=== PATIENT | male | born 1970 | race Caucasian/White ===

== ENCOUNTER 2019-04-08 15:49 | Inpatient (IN) | payer OTHER ==
[~2019-04-08] VITALS: Ht 182.9 cm; Wt 173.2 kg
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
--- OUTSIDE RECORDS SUMMARY | ~2019-04-08 | XMS | Clinical Summary ---
Demographics + + + | Address | [address] | | | [place] [address] | + + + | Home Phone | | + + + | Preferred Language | Unknown | + + + | Marital Status | Single | + + + | Worship Affiliation | Unknown | + + + | Race | Unknown | + + + | Ethnic Group | Unknown | + + + Author + + + | Author | [facility] | | | and [place] | + + + | Organization | [facility] | | | and [...] Team Providers + +------+ + | Care Site Supervisor Name | Role | Phone | + +------+ + | No, Physician | PCP | Unavailable | + +------+ + Allergies No Known Allergies Medications + + + +---------+------+------+-------+ | Medication | Sig | Dispensed | Refills | Star | End | Statu | | | | | | t | Date | s | | | | | | Date | | | + + + +---------+------+------+-------+ | albuterol 90 | inhale 1 to 2 puffs | | 0 | 09/2 | | Activ | | mcg/puff inhaler | by mouth and INTO | | | 1/20 | | e | | | THE LUNGS every 4 to | | | 19 | | | | | 6 hours if needed | | | | | | + + + +---------+------+------+-------+ | amLODIPine | | | 0 | 03/0 | | Activ | | (NORVASC) 5 mg | | | | 2/20 | | e | | tablet | | | | 19 | | | + + + +---------+------+------+-------+ | carvedilol (COREG | | | 0 | 04/2 | | Activ | | CR) 40 mg 24 hr | | | | 7/20 | | e | | capsule | | | | 19 | | | + + + +---------+------+------+-------+ | furosemide (LASIX) | | | 0 | 04/2 | | Activ | | 40 mg tablet | | | | 7/20 | | e | | | | | | 19 | | | + + + +---------+------+------+-------+ | meloxicam (MOBIC) | take 1 tablet by | | 0 | 07/2 | | Activ | | 15 mg tablet | mouth once daily | | | 6/20 | | e | | | | | | 19 | | | + + + +---------+------+------+-------+ | BD DISP NEEDLES | use every week with | | 0 | 12/0 | | Activ | | 22G X 1-2" MISC | TESTOSTERONE | | | 8/20 | | e | | | | | | 18 | | | + + + +---------+------+------+-------+ | KLOR-CON 20 MEQ | take 1 packet once | | 0 | 03/2 | | Activ | | packet | daily | | | 2/20 | | e | | | | | | 19 | | | + + + +---------+------+------+-------+ | telmisartan | | | 0 | 04/2 | | Activ | | (MICARDIS) 80 MG | | | | 7/20 | | e | | tablet | | | | 19 | | | + + + +---------+------+------+-------+ | testosterone | inject 0.5 | | 0 | 12/0 | | Activ | | cypionate | milliliter as | | | 8/20 | | e | | (DEPO-TESTOSTERONE) | directed every week | | | 18 | | | | 200 mg/mL injection | | | | | | | + + + +---------+------+------+-------+ | prazosin | Start with 1 mg | 90 | 0 | 09/2 | | Activ | | (MINIPRESS) 1 mg | nightly, after 3 | capsule | | 6/20 | | e | | capsule | nights increase to 2 | | | 19 | | | | | mg, after 7 days | | | | | | | | increase to 3 mg | | | | | | + + + +---------+------+------+-------+ | sertraline | Take 0.5 tablets by | 90 | 0 | 09/2 | | Activ | | (ZOLOFT) 50 mg | mouth Daily. | tablet | | 11/18 | | e | | tablet | | | | 19 | | | + + + +---------+------+------+-------+ Active Problems No known active problems Encounters +--------+---------+ + + + | Date | Type | Specialty | Care Team | Description | +--------+---------+ + + + | 02/24/ | Office | Rehabilitation | Poornima Thurston | Posttraumatic stress | | 2019 | Visit | | KIRBY Cartgaena | disorder (Primary | | | | | | Dx); Accident at | | | | | | workplace | +--------+---------+ + + + | 02/21/ | Office | Immediate Care | Ya | PTSD (post-traumatic | | 2018 | Visit | | Chino Bedolla MD | stress disorder) | | | | | | (Primary Dx); | | | | | | Work-related | | | | | | condition | +--------+---------+ + + + from Last 3 Months Social History + + + +--------+------+ | [...] recent travel history available. | + + Last Filed Vital Signs + + + + | Vital Sign | Reading | Time Taken | + + + + | Blood Pressure | 182/95 | 02/24/20191353 PDT | + + + + | Pulse | 104 | 02/24/20191353 PDT | + + + + | Temperature | 36.8 C (98.3 F) | 02/24/20191353 PDT | + + + + | Respiratory Rate | 14 | 02/21/20191450 PDT | + + + + | Oxygen Saturation | 97% | 02/21/20191450 PDT | + + + + | Inhaled [...] 02/24/20191353 PDT | + + + + Plan of Treatment + + + + + | Health Maintenance | Due Date | Last Done | Comments | + + + + + | Vaccine: | | | | | Dtap/Tdap/Td (1 - | 9 | | | | Tdap) | | | | + + + + + | Vaccine: | | | | | Pneumococcal 19-64 | 9 | | | | (PPSV23 only) Medium | | | | | Risk (1 of 1 - | | | | | PPSV23) | | | | + + + + + | Vaccine: Influenza | | | | | (#1) | 9 | | | + + + + + Results Not on filefrom Last 3 Months Insurance + +--------+ +--------+-------+---------+--------+ | Payer | Benefi | Subscriber | Effect | Phone | Address | Type | | | t Plan | ID | kaycee | | | | | | / | | Dates | | | | | | Group | | | | | | + +--------+ +--------+-------+---------+--------+ | [employer] [place] [employer] | TRAVEL | [id number] | | | | Ind[place] | | [place] | [place] | | 019-Pr | | | ity | | | CHARTE | | esent | | | | | | [place] | | | | | | | | WC | | | | | | + +--------+ +--------+-------+---------+--------+ + +--------+ +--------+ + + | Guarantor Name | Accoun | Relation to | Date | Phone | Billing Address | | | t Type | Patient | of | | | | | | | | | | + +--------+ +--------+ + + | Hemal Mcneil | Worker | Self | [birth year] | [address] | | | s Comp | | 1970 | | [place], [place] | | | | | | 4 (Home) | [id number] | + +--------+ +--------+ + + | Hemal Mcneil | Worker | Self | [birth year] | [address] | | | s Comp | | 1969 | | [place], [place] | | | | | | 4 (Home) | [phone] | + +--------+ +--------+ + + | Hemal Mcneil | Person | Self | [birth year] | [address] | | | al/Fam | | 1969 | | [place], [place] | | | megan | | | 4 (Home) | [phone] | + +--------+ +--------+ + + Advance Directives Patient has advance care planning documents on file. For more information, please contact:[facility] [place] [address]
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
[2019-04-08] MEDS ORDERED: MICARDIS80 MG PO (16:06)
[2019-04-08] MEDS ORDERED: KEFLEX500 MG PO (16:08)
[2019-04-08] MEDS ORDERED: BACTRIM DS TAB1 EACH PO (16:08)
--- NOTE | 2019-04-08 20:30 | NUR ---
PT ARRIVED TO UNIT VIA STRETCHER FROM ED. PT DROWSY BUT AWAKENS EASILY AND ABLE TO FOLLOW COMMANDS. SELF TRANSFER TO BED. AAOX4. PUPILS 1MM AND NONREACTIVE. SINUS TACH ON MONITOR. EXPIRATORY WHEEZE IN BUL ON 2L NC. BOWEL TONES ACTIVE, DENIES NAUSEA. SEE DOCUMENTATION AND PHOTOS OF WOUNDS, SITES OUTLINED.
--- NOTE | 2019-04-08 21:50 | NUR ---
PT NOTED TO HAVE REDDNESS AND SKIN BREAKDOWN IN GROIN AND PANNUS. INCONTINENT OF BOWEL. LINEN CHANGE AND DEREK CARE TO BE COMPLETED.
--- NOTE | 2019-04-08 22:20 | NUR ---
RN C\ PT BED CHANGE AND DEREK-CARE, ASST JENSEN C\ TURNING PT TO DOC PTs SKIN ASSESSMENT, C\ PT SKIN CARE
--- NOTE | 2019-04-08 22:23 | NUR ---
RN Anat asked for assistance with care of her pt. Bed change complete, pt on bedpan twice, new gown put on. Nothing further needed.
--- NOTE | 2019-04-08 23:30 | NUR ---
PT NOTED TO BE MORE ALERT AND TALKATIVE. ASSESSED MEDICAL HX, PT STATES, "I HAVE HIGH BLOOD PRESSURE AND I THINK THAT'S IT, I'M SUPPOSE TO TAKE MEDS BUT I CAN'T AFFORED THEM." ASSESSED ABILITY TO DO ADLS AND LIVING ARANGMENTS. PT STATES, "I'M HOMELESS AND LIVE IN MY TRUCK SO I CAN'T REALLY TAKE CARE OF SOME THINGS." ASSESSED DRUG USE, PT DENIES ANY DRUG OR ALCOHOL USE, REINFORCED CONFIDENTIALITY AND IMPORTANCE OF ACCURATE HEALTH HX, PT DENIES DRUG USE. REINFORCED SAFETY AND FALL PRECAUTIONS.
--- NOTE | 2019-04-09 00:30 | NUR ---
CALL LIGHT ANSWERED, PT SBA WITH FWW TO BS, LARGE LIQUID BM, BACK TO BED. DENIES RESTLESSNESS OR AGGITATION. C/O 3/10 GENERALIZED PAIN, PRN TYLENOL TO BE GIVEN.
--- NOTE | 2019-04-09 01:00 | NUR ---
PHONE CALL TO DR. ALBARADO PER CALL PARAMETER FOR TEMP OF 102 F. INFORMED OF LOOSE STOOL AND WOUND DRAINAGE. PRN TYLENOL GIVEN 1 HOUR PRIOR. ORDER TO CONTINUE COLD THERAPY AND GIVE ATIVAN.
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
--- NOTE | 2019-04-09 02:30 | NUR ---
PT RESTING WITH EYES CLOSED, RESPIRATIONS EVEN AND UNLABORED, NO ACUTE DISTRESS. IV SITES ASSESSED AND WNL. CALL LIGHT WITHIN REACH.
--- NOTE | 2019-04-09 04:11 | NUR ---
CALL LIGHT ANSWERED, PT VOIDED 380 MLS. WATER REFILLED. TEMP 98.3 F. NO ACUTE CHANGES TO ASSESSMENT. CALL LIGHT WITHIN REACH.
--- NOTE | 2019-04-09 05:50 | NUR ---
CALL LIGHT ANSWERED, PT VOIDED 500 MLS. REQUESTING FOOD, JELLO AND WATER PROVIDED PER CLEAR LIQUID DIET. LAB IN ROOM TO DRAW.
--- NOTE | 2019-04-09 06:49 | NUR ---
PT GIVEN 2 MG ATIVAN FOR INCREASED RESTLESSNESS. PT STATES, "I WANT A BEER." REASSESSED ALCOHOL USE. PT STATES HE "DRINK ONCE IN AWHILE" AND "GOES ALONG WIHTOUT AND THEN DOES A PUB CRAWL." DENIES RECENT ALCOHOL USE. WILL CONTINUE TO MONITOR.
--- NOTE | 2019-04-09 08:24 | NUR ---
PATIENT AWAKE, REQUESTING URINAL. PLACED WITH BLUE CHUX. PATIENT REQUESTING MORE CANS OF SODA. PROVIDED WITH ONE. DIET ADVANCED TO REGULAR, ORDERED REGULAR TRAY. FULL BODY ASSESMENT DONE. WIDER BSC DELIVERED FROM MED SURG. DISCUSSED POC TO USE BSC AND GET UP OUT OF BED FOR TOILETING.
--- NOTE | 2019-04-09 11:00 | NUR ---
PATIENT HAD TEMP OF 103.7 ORAL, APPEARED FLUSH AND TENSE IN BED. REPORTED TO DR. ALBARADO. ADMINISTERED TYLENOL PO. TEMP NOW 99.7. DISCUSSED WITH PATIENT IMPORTANCE OF WEARING BIPAP. PATIENT AGREED TO WEAR BIPAP FROM NOW ON. DISCUSSED ILLNESS WITH PATIENT, STATED " I DIDN'T KNOW I WAS THAT SICK" REVIEWED POC WITH PATIENT AND DISCUSSED BEING PROACTIVE WITH KEEPING STRENGTH. PATIENT VERBALIZED UNDERSTANDING.
--- NOTE | 2019-04-09 12:39 | NUR ---
PATIENT UP TO RECLINER, TRANSFERED WITH WALKER PIPO. REPORTED 9/10 PAIN FOR RIGHT LEG PAIN. REPORTS HURTS TO BEAR WEIGHT. PATIENT RECLINED BACK WITH LEG ELEVATED ON PILLOW. WOUND TO LOWER LEG FLUID FILLED BLISTERS WITH CLEAR EXUDATE DISCHARGE. PATIENT NOW EATING LUNCH, TOLERATED WELL. CHANGED LINEN, NOTED WHEN PATIENT NEEDS TO URINATE HAS URGENCY. ABLE TO USE URINAL IN RECLINER BETTER. TOLERATING ACTIVITY WELL, HR 121 WITH NO NOTED SOB.
--- NOTE | 2019-04-09 14:42 | NUR ---
PATIENT BACK TO BED FROM RECLINER, FULL BED BATH PROVIDED AND GOWN CHANGED. NOTED BLISTERS TO RIGHT LEG FLUID FILLED AND APPEAR TO BE GETTING LARGER. REDNESS OUTLINED APPEARS TO BE RECEEDING AND IMPROVED, HOT TO TOUCH. VS STABLE, TEMP 97.9. PAIENT REQUESTED WARM BLANKETS AND STATED " LADIES I WILL BE HAVING A BOWEL MOVEMENT SOON, SO GET READY WHEN I CALL". BSC READY AND PATIENT AGREES TO GET UP.
--- NOTE | 2019-04-09 15:55 | NUR ---
PATIENT AGITATED, THRASHING IN BED. APPEARS TO BE MUMBLING AND TALKING AT NURSES AGITATED. CIWA 6, ADMINISTERED IV ATIVAN. PATIENT NOW RESTING, APPEARS CALM. NOTED LUNG SOUNDS COURSE WITH EXPIRATORY WHEEZE. SPOKE WITH RT ON PHONE AND PUT IN ORDER FOR IS.
--- NOTE | 2019-04-09 17:08 | NUR ---
ATTEMPTED TO PLACE ON BIPAP PATIENT REFUSED. OXYGEN IN MOUTH, WITH SLEEP APNEA. PATIENT APPEARS TO BE RESTING CALMY, SNORING. GOOD URINE OUTPUT, COLOR APPEARS TO BE IMPROVING CLINICAL CARE COORDINATOR CONCENRATION. PANNAS EXCORATION APPEARS IMPROVED, WASHED WITH SOAPY WATER, PATTED DRY. APPLIED NYSTATIN TO AREA WITH CLEAN PILLOW CASES. PATIENT HAD MEDIUM LOOSE BM. PATIENT ASSISTED WITH TURNING BACK AND FORTH IN BED, INCONT IN BED.
--- NOTE | 2019-04-09 17:53 | NUR ---
PATIENT UP TO BSC WITH WALKER AND ASSIST. NOTED REDNESS SPREADING IN BLOTCHY PATCHES ABOVE MARKED LINES, SKIN HOT TO TOUCH. RIGHT LEG WEEPING MOPERATE AMOUNS OF CLEAR EXUDATE FROM BACK OF LEG. LARGE FLUID FILLED BLISTERS ON TOP OF MEDEIROS. CALL TO DR. ALBARADO, NEW ORDER 40 MG LOVENOX SUBQ DAILY. ORDER TO ADMINISTER DOSE NOW THEN SCHEDULE FOR TOMORROW.
--- NOTE | 2019-04-09 18:47 | NUR ---
CALL TO DR. ALBARADO, REPORTED TEMP 102.7 ORALLY WITH INCREASED BLOTCHINESS OF RIGHT LEG. PATIENT HAVING INCREASED PAIN WITH WEIGHT BEARING. LAST DOSE OF TYLENOL 1523. NEW ORDER FOR BLOOD CULTURES TO BE DRAWN NOW. PUT ORDER IN AND CALLED LAB TO DRAW NOW.
--- NOTE | 2019-04-09 19:15 | NUR ---
PATIENT FEBRILE THROUGHOUT DAY, ADMINISTERED TYLENOL AND NOTIFIED DR. ALBARADO. NEW ORDERS FOR BLOOD CULTURES THIS EVENING TO BE DRAWN NOW, EMERGENCY DEPARTMENT DIRECTOR TO ROOM REPORTED WOULD BE DELAYED SECONDARY TO HAVING TO CALL IN FIELD SERVICE TECHNICIAN POULTRY TECH. PATIENT HAS BEEN UP TO RECLINER, TOLERATED WELL. TOLERATED FLUIDS WELL. GOOD URIINE OUTPUT. RIGHT LEG HAS INCREASED REDNESS NOTED THIS EVENING, WITH TEMP 102.7. LARGE FLUID FILLED BLISTERS. PATIENT HAS PAIN FROM RIGHT LEG WHEN BEARS WEGIHT. PATIENT UP TO [facility], TOLERATED WELL LARGE LIQUID BOWEL MOVEMENT. CHANGED DRESSING TO BACK, BROWN EXUDATE. CULTURES FOR WOUND ON BACK PENDING. PATIENT EATING REGULAR DIET AND DRINKING FLUIDS WELL. CALLS STEPHANIE HUGHES.
--- NOTE | 2019-04-09 20:38 | NUR ---
PT HAD MULT ATTEMPTS TO DRAW BLOOD CULTURES, LAB WAS ONLY ABLE TO GET 1 SITE, DR ALBARADO AWARE. DR ALBARADO IN DEPT. PT WILL AROUSE AND ASK FOR WATER THEN BACK TO SLEEP. PT ASKING ABOUT PEOPLE THAT ARE NOT IN ROOM. IS COOPERATIVE. DID CRY WITH PAIN WHEN R LEG REPOSITIONED ON PILLOWS. MOUTH BREATHS SO MOUTH IS DRY. BREATH TONES HAVE SCATTERED WHEEZES. C-PAP APPLIED. R LOWER LEG IS VERY REDDENED WITH 3 VERY LARGE BLISTERS ON ANT PORTION THAT ARE INTACT. HAS REDDENED AREAS UNDER PANNIS THAT ARE EXCORIATED, R SIDE IS WORSE THAN L. AREA CLEANED AND NYSTATIN APPLIED. DID VOID ONCE TO URINAL BUT IS ALSO INC OF URINE, PENDING BED CHANGE.
--- NOTE | 2019-04-09 21:28 | NUR ---
LINEN CHANGED WAS INC OF URINE. HAS SCANT AMT DRAINAGE FROM WOUND ON BACK. PT WORE BIPAP FOR ABOUT 30 MIN AND WAS MORE ALERT AFTERWARD. PT HAD COOKIES AND ICE CREAM AT BEDSIDE EARLIER AND DR ALBARADO HAD THEM REMOVED FROM ROOM PT NOW ASKING FOR THEM AND EXPLAINED THEY WERE GONE. GIVEN JELLO. PT IS NOT INTERESTED IN EATING A MORE HEALTHY DIET.
--- NOTE | 2019-04-09 22:06 | NUR ---
PT HAVING CHILLING AND RIGORS, T 98.4 TE AND 97.7 A, HAD JUST DRANK WATER. HR 130 AND REQUESTING BLANKETS. GIVEN 650MG TYLENOL PO FOR COMFORT.
--- NOTE | 2019-04-09 23:13 | NUR ---
HAS FREQUENCY OF URINATION AND HAS DIFFICULTY USING URINAL. INC OF URINE. CHUX CHANGED. BIPAP IN PLACE VOLUNTARILY AND TURNED TO SIDE AND READY FOR SLEEP.
--- NOTE | 2019-04-10 00:35 | NUR ---
PT STOOD AT BEDSIDE FOR BED CHANGE. CONT TO HAVE REQUENCY AND URGENCY AND DIFFICULTY USING URINAL. STATES DID USED TO TAKE FLOMAX. HAD PT TRY TO USE URINAL BEFORE LEAVING ROOM AND WAS UNABLE TO VOID , PT FELL ASLEEP AND WITHIN 10MIN WAS NEEDING TO URINATE. HAS MOD AMT SEROUS DRAINAGE FROM OPEN AREA ON POST R CALF. CONT TO HAVE REDDENED AREAS EARLIER DESCRIBED. DID HAVE PAIN UPON STANDING BUT FELL BACK TO SLEEP WHEN BACK TO BED.
--- NOTE | 2019-04-10 02:32 | NUR ---
HAS BEEN ASLEEP. SLEEP APNEA OBSERVED, IS CURRENTLY ON NC. WAS ABLE TO USE URINAL TO VOID.
--- NOTE | 2019-04-10 03:20 | NUR ---
AWALE ASKING FOR WATER. ALSO WANTING LIGHTS OUT AND HELP IN REPOSITIONING TO SIDE. PT WAS ABLE TO TURN WITHOU ASSIST. WAS FOUND TO BE INC OF LARGE AMT URINE. CHUX CHANGED.
--- NOTE | 2019-04-10 06:32 | NUR ---
IN TO CHECK ON PT AT 0550, HAD PULLED OFF COVERS AND GOWN WAS TOO HOT. EXPLAINED TO PT THAT IT WAS INNAPRORPIATE TO BE NUDE. PT TO GET UP TO CHAIR SO BED COULD BE CHANGED HAD BEEN INC OF LARGE AMT URINE, ALSO URINE WAS ON FLOOR. DOES TRY TO USE URINAL. ASSISTED TO CHAIR, PT USES WALKER. THE BLISTER ON ANT R LEG HAS BROKEN, DRSG APPLIED HAS LARGE AMT DRAINAGE FROM BOTH ANT AND POST OPEN AREAS. THE DRSG ON THE WOUND ON BACK HAS MOD AMT DRAINAGE BUT WAS UNABLE TO CHANGE PT MOVED TO CHAIR AND CANNOT REACH IT AT THIS TIME. IS SLEEPING IN RECLINER.
--- NOTE | 2019-04-10 08:00 | NUR ---
DRESSING REMOVED FROM PT LOWER RT BACK, MODERATE AMOUNT OF PURULANT DRAINAGE ON DRESSING. WOUND WASH APPLIED, WOUND THEN COVERED WITH ABD PAD AND MEDIPORE TAPE. PT LOUIS WELL.
--- NOTE | 2019-04-10 08:02 | NUR ---
PT INCONTINENT OF LARGE AMOUNT OF URINE, SOME WENT INTO URINAL WHICH HE THEN SPILLED ON THE FLOOR. CLEANED AND DRIED FLOOR. CHANGED PT GOWN, DEREK CARE DONE, PT ABLE TO STAND UP FROM CHAIR WITH ASSISTANCE, USES WALKER TO AMBULATE TO BED. PT ABLE TO GET INTO BED INDEPENDENTLY. PT IS IRRITABLE AND ANXIOUS.
--- NOTE | 2019-04-10 08:32 | NUR ---
IV SITE IS INTACT, FLUIDS AND FLUSHES INFUSE EASILY. PT DENIES SOB AND NAUSEA.
--- NOTE | 2019-04-10 10:20 | NUR ---
DR. HEBERT HERE TO SEE PATIENT. ORDERS RECIEVED.
--- NOTE | 2019-04-10 10:35 | NUR ---
PT MOSTLY SLEEPING SINCE EATING 100% OF HIS BREAKFAST. PT ABLE TO USE CALL LIGHT. IV SITE IS INTACT, NO REDNESS OR SWELLING NOTED, FLUIDS INFUSE EASILY.
--- NOTE | 2019-04-10 12:26 | NUR ---
DELIVERED PATIENT'S LUNCH TRAY TO ROOM, ENCOURAGED PATIENT TO GET UP TO RECLINER TO EAT. PATIENT REFUSED, STATING " NO KAREN I AM GONNA EAT RIGHT HERE IN BED". DISCUSSED WITH PRIMARY NURSE TOBY JENSEN WHO VERBALIZED OKAY FOR PATIENT TO HAVE LUNCH IN BED. PATIENT HOB UP WITH LUNCH SET UP FOR PATIENT. CALL LIGHT WITHIN REACH, NO OTHER NEEDS AT THIS TIME.
--- NOTE | 2019-04-10 13:00 | NUR ---
WASHED PT PANNUS AND GROIN FOLDS WITH HIBICLENS SOAPY WATER, DRIED WELL, APPLIED NYSTOP POWDER. PT LOUIS WELL.
--- NOTE | 2019-04-10 13:55 | NUR ---
DANDY OPERATOR ABLE TO START NEW IV SITE IN LEFT UPPER ARM WITH ASSISTANCE FROM ULTRASOUND. SITE INFUSES EASILY.
--- NOTE | 2019-04-10 14:36 | NUR ---
PT C/O CHILLS AND HAS VISABLE RIGORS, GIVEN ADDITIONAL BLANKETS, TEMP IS 101.0, GIVEN PO TYLENOL. PT ALSO AGGITATED, RESTLESS, NOT ABLE TO HOLD NORMAL CONVERSATION, FIDGETS WITH HIS PHONE. PT GIVEN 2 MG IV ATIVAN FOR AGGITATION.
--- NOTE | 2019-04-10 15:21 | NUR ---
PT COUGH CALMED ONCE HE HAD PRN NEB, PT NOW SLEEPING.
--- NOTE | 2019-04-10 17:05 | NUR ---
PT UP OUT OF BED AMBULATED TO THE COUCH WITH ONE PERSON ASSIST AND WALKER, PT COMPLAINED MUCH ABOUT DISCOMFORT IN RT LEG, HOWEVER WAS ABLE TO MOVE QUITE WELL. PT CLEANED FOR LARGE AMOUNT OF INCONTINENT URINE IN BED. ALL LINENS CHANGED. WASHED PT BACK AND DEREK AREA WITH WARM SOAPY WASH CLOTH.
--- NOTE | 2019-04-10 21:00 | NUR ---
IN TO SEE PT 1944, WAS LAYING ON COUCH. ASSESSMENT DONE. DRSG TO R LEG CHANGED. CONT TO HAVE BLISTERED AREAS TO R LOWER LEG, SOME ARE OPEN AND DRAINING SEROUS FLUID. READY TO GO BACK TO BED, USED WALKER TO AMB. HAS PAIN WITH MOVEMENT. SAT AT EDGE OF BED AND REQUESTED BASIN OF WATER, WASHED FACE AND HEAD AND HANDS. BRUSHED TEETH. DRSG TO BACK WOUND CHANGED, CONT TO HAVE MOD AMT PURULENT DRAINAGE. DRSG TO L HAND IV SITE CHANGED WHEN PT WAS ON COUCH,STARTED TO BLEED WHEN PT UP, DC'D. CONT TO VOID FREQ AND HAS DIFFICULTY USING URINAL.
--- NOTE | 2019-04-10 22:00 | NUR ---
IV STARTED NEAR L AXILLA BY Ariel GREEN RN AFTER SEVERAL ATTEMPTS. EXPLAINED TO PT THAT HE IS GOING TO NEED IV ACCESS FOR SEVERAL DAYS FOR ABX THERAPY FOR CELLULITIS. PT AGREES TO PICC.
--- NOTE | 2019-04-10 23:40 | NUR ---
PT NOTED TO BE SHIVERING AT 2215, T 103, GIVEN 650MG TYLENOL PO. NOW C/O BEING HOT, T 99.4, COVERS OFF AND FAN AT BEDSIDE. NO CHANGE R LOWER LEG WOUND. PT GIVEN SNACK OF PUDDING AND JELLO. PT IS MORE COOPERATIVE AND APOLOGIZED FOR EARLIER BEHAVIOR, STATES HE WAS NOT IN HIS RIGHT MIND AND IS BETTER NOW. EXPLAINED INFECTION CAN DO THAT AND ASSURED PT HE WAS GETTER BETTER. CONT TO VOID FREQ.
--- NOTE | 2019-04-11 01:22 | NUR ---
PT AWAKE AND THEN SITTING AT EDGE OF BED. HAD BEEN DIAPHORETIC AND LINEN VERY WET. ALSO WET WITH URINE. STOOD AT BEDSIDE WHILE LINEN CHANGED. BACK TO BED AND FELL ALMOST IMMEDIATELY ASLEEP. ABLE TO MOVE PTS ARMS WITHOUT HIS AWAKENING. DRSG FELL OFF OF R LOWER LEG, NOT REPLACED.
--- NOTE | 2019-04-11 03:10 | NUR ---
WILL SLEEP FOR INTERVALS THEN FLAILS ARMS. ALSO VOIDING EVERY 20MIN TO 1 HR. HAS OBSERVED SLEEP APNEA. WHEN IS AWAKE IS NOT FULLY AWARE. IV SITES ARE POSITIONAL.
--- NOTE | 2019-04-11 04:15 | NUR ---
AWAKE TO VOID. WAS ALSO INC OF URINE. ASSESSMENT DONE. HAS LESS DRAINAGE FROM R LEG AT THIS TIME. WHILE IN ROOM WATCHED PT RESP, NOTED SLEEP APNEA WITH SATS LOW 63%.02 CANNULA APPLIES WITH LITTLE IMPROVEMENT. BIPAP APPLIED. PT DID STATE HE HAS HAD SLEEP APNEA FOR A LONG TIME AND THAT HIS MACHINE WOULD HELP.
--- NOTE | 2019-04-11 05:18 | NUR ---
WILL DESAT TO 80'S EVEN WITH BIPAP IN PLACE. RT AWARE AND IN TO CHECK ON PT.
--- NOTE | 2019-04-11 06:14 | NUR ---
TOOK BIPAP OFF, STATES HE COULDN'T GET COMFORTABLE. FELL ASLEEP ALMOST IMMEDIATELY. CONT TO DESAT TO 80'S. PT WAS ADVISED OF HIS DESATURATIONS BEFORE HE WENT BACK TO SLEEP. HR 98-101. HAS HAD LESS DRAINAGE FROM R LOWER LEG THIS PAST SHIFT.
--- NOTE | 2019-04-11 09:12 | NUR ---
AMBULATES FROM BED TO CHAIR C 1 PERSON ASSIST. GAIT UNSTEADY. DIFFICULTY GETTING OUT OF BED. DENIES PAIN AT THIS TIME. CALL LIGHT IN REACH. INSTRUCTED TO CALL IF HE WANTS TO GET UP. LINENS CHANGED AT THIS TIME. CONTINENT ET INCONTINENT OF URINE. DENIES OTHER NEEDS AT THIS TIME. BREAKFAST TRAY SET UP SO HE MAY EAT.
--- NOTE | 2019-04-11 10:51 | NUR ---
PT IS REFERRED FOR A WOUND CONSULT OF THE LOWER BACK AND RIGHT ANTERIOR/POSTERIOR CALF. PT IS NOT A GREAT HISTORIAN, HE IS UNABLE TO GIVE SPECIFIC DETAILS TO WHEN HIS WOUNDS FIRST APPEARED AND POTENTIAL CAUSATIVE FACTORS. HE HAS AN ALTERED AFFECT, WITH POTENTIAL AUDITORY HALLUCINATIONS. THE LOWER BACK WOUND MEASURES 1CM X 1.9CM X 0.3CM. THE AREA IS A FULL THICKNESS WOUND, THE BASE IS COVERED IN ADHERENT SLOUGH. THE EDGES ARE NON-PROLIFERATIVE, SIGNIFICANTLY INDURATED. THERE IS MINIMAL EXUDATE NOTED. THERE ARE SIGNS AND SYMPTOMS OF INFECTION WITH THE INDURATION EXTENDING AT LEAST 3-4CM PAST THE WOUND, WARMTH OF THE SKIN, AND PAIN WHEN PALPATED. PT RATES NO PAIN AT REST IN HIS LOWER BACK. PERIWOUND SKIN IS INTACT, RED, AND RADIATES WARMTH. AN OUTLINE HAS BEEN DRAWN TO ANA GROWTH OF THE REDDENDED AREA. IT IS SUGGESTED THAT AN ULTRASOUND BE TAKEN TO RULE OUT ABSCESS. THE WOUND COULD POTENTIALLY BE A SPIDER BITE. 1. CLEANSE THE AREA WITH WOUND CLEANSER AND DRY 4X4 GAUZE. 2. APPLY SKIN PREP TO PERIWOUND SKIN. 3. APPLY CALCIUM ALGINATE (MEDIHONEY PATCH) TO FILL THE WOUND BED. 4. COVER WITH A 3X3 ADHESIVE FOAM (ALLEVYN) 5. CHANGE Q3DAYS OR PRN SATURATION THE RIGHT POSTERIOR LOWER EXTREMITY WOUNDS MEASURE 3CM X 3CM X 0.1CM CLUSTER INFERIORLY. 2CM X 1CM X 0.2CM SUPERIORLY. BOTH ARE FULL THICKNESS WOUNDS WITH A MODERATED AMOUNT OF DRAINAGE, IT IS ACTIVELY WEEPING YELLOW EXUDATE WHILE ASSESSING. THE ANTERIOR LOWER EXTREMITY WOUNDS ARE NOT MEASURED, THERE ARE RAISED FLUID FILLED BLISTERS THAT ARE BARELY DRAINING AT THIS TIME. THE BASE OF THE POSTERIOR WOUNDS ARE ARE CLEAN, GRANULATING TISSUE. THE EDGES ARE PROLIFERATIVE, NO UNDERMINING OR TUNNELING. THERE ARE SIGNS/SYMPTOMS OF INFECTION, RED PERIWOUND SKIN, WARM TO THE TOUCH SKIN. PT RATES PAIN 5/10 ON THE LOWER EXTREMITY. THE PERIWOUND SKIN IS BLISTERED THROUGHOUT, RED, AND WARM TO THE TOUCH. 1. CLEANSE THE AREA WITH WOUND CLEANSER AND DRY 4X4 GAUZE 2. APPLY CALCIUM ALGINATE (MEDIHONEY) TO AREAS AREAS OF OPEN SKIN 3. COVER ALL WEEPING AREAS WITH ABD PAD, WRAP IN KERLEX TO SECURE IN PLACE, AND MEDIPORE TAPE TO KEEP KERLEX IN PLACE. 4. CHANGE DAILY OR PRN SATURATION
--- NOTE | 2019-04-11 10:58 | NUR ---
PICC RN IN TO PERFORM PICC LINE. WOUND RN IN ROOM EARLIER AND WRAPPED WOUND ON LEG AND ALSO DRESSED WOUND ON BACK. WOUND RN RECOMMENDS U/S OF AREA AND THIS INFO PASSED ALONG TO DR. ALBARADO. PT REMAINS IRRITABLE, BUT STILL DROWSY. PT FALLS ASLEEP ALMOST IMMEDIATELY AFTER TALKING TO PATIENT. PT IS NOT DIAPHORETIC OR CLAMMY, HR IN THE 90s.
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
--- NOTE | 2019-04-11 12:18 | NUR ---
PICC LINE INSERTION NOTE WAS ASKED BY DR. ALBARADO TO EVALUATE PT FOR POSSIBLE PICC LINE PLACEMENT DUE TO LIMITED VEIN STATUS AND PT NEEDING MULTIPLE IV ABX. AFTER REVIEWING THE CHART, TALKING WITH THE PT'S NURSE, AND TALKING WITH THE PT IT WAS DECIDED TO PROCEED WITH A PICC LINE PLACEMENT. THE PT WAS ABLE TO SIGN THE CONSENT FORM AND ALL QUESTIONS WERE ANSWERED. THE PT'S RIGHT BRACHIAL AND BASILIC VEINS WERE IDENTIFIED. THE BASILIC VEIN WAS CHOSEN IT WAS APPROXIMATELY 1.5 CM FROM THE SURFACE, APPROXIMATELY 8 FR VIA SITE RITE U/S, AND THE BRACHIAL VEIN WAS CLOSE TO THE BRACHIAL ARTERY. THE RIGHT ARM WAS PREPPED, THE PT DRAPPED FOR STERILE PROCEDURE. THE RIGHT BASILIC VEIN WAS ACCESSED ON THE FIRST ATTEMPT. THE GUIDEWIRE, INTRODUCER AND PICC LINE ADVANCED EASILY. DARK RED, BRISK, NON-PULSITLE BLOOD RETURNED. Runner MAGNET DETECTOR WAS USED AND SHOWED THE PICC LINE TO ADVANCE IN THE MANNER EXPECTED. CHEST XRAY WAS OBTAINED. DR. CAIN VERIFIED THE TIP OF THE PICC LINE WAS IN A PROPER LOCATION AT 1156. STERILE DRESSING WAS APPLIED OVER THE SITE. PT'S ARM WAS WRAPPED WITH GAUZE AND COBAN TO REDUCE ANY BLEEDING AND SWELLING AROUND THE INSERTION SITE. ELLEN DRIVER RN WAS IN THE ROOM DURING THE PROCEDURE AND IS THE PT'S NURSE. CARE TURNED OVER TO HER. PT TOLERATED THE PROCEDURE WELL AND RESTED DURING MOST OF IT.
--- NOTE | 2019-04-11 14:12 | NUR ---
PATIENT HAS U/S OF LOWER BACK AREA. PT VERY ANNOYED WITH HAVING TO HAVE ANOTHER MEDICAL PROCEDURE, "BECAUSE YOU GUYS JUST WON'T LEAVE ME ALONE OR LET ME SLEEP AROUND HERE." EXPLAINED TO PATIENT THE NECESSITY TO UNDERSTAND IF HIS WOUND ON HIS BACK HAS A DRAINABLE AREA OR NOT. PT WILLING TO BE COMPLIANT, BUT VISIBLY FRUSTRATED. APOLOGIZED TO PATIENT ABOUT NOT BEING ABLE TO LET HIM REST MORE, AND ATTEMPTS WILL BE MADE TO BUNDLE CARES MUCH POSSIBLE AND ALLOW PATIENT TO REST.
--- NOTE | 2019-04-11 14:17 | NUR ---
PT WELCOMED ME IN-LAYING IN BED ON C-PAP. PT MENTIONED HE WOULD LIKE FOR ME TO COME BACK AGAIN, HE WOULD LIKE TO REST. WILL FOLLOW NEEDED
--- NOTE | 2019-04-11 14:25 | NUR ---
PT GRUNTING IN ROOM. UPON ENTERING, SITTING ON EOB. URINAL HELD TO GENITALS. BEGINS URINATING, MISSING THE URINAL AND URINATES ON THE FLOOR. GOWN C URINE NOTED ON IT, CHANGED C ASSIST BY THIS NURSE. RESPOSITIONS SELF BACK INTO BED. REINFORCED NEED TO CALL FOR ASSIST BEFORE SITTING UP OR STANDING IN ROOM. NO C/O PAIN AT THIS TIME. CALL LIGHT IN REACH, BR UP X2. DENIES OTHER NEEDS AT THIS TIME.
--- NOTE | 2019-04-11 15:23 | NUR ---
CPAP PLACED BACK ON PATIENT AT THIS TIME. PT WANTING TO TAKE A NAP AND IS FRUSTRATED WITH "BEING BUGGED ALL DAY AND NOT ALLOWED TO SLEEP." PATIENT SNAPS AT THIS RN SOME. PT ALSO REQUESTING "SOMETHING SWEET, LIKE A COOKIE OR SOME ICE CREAM." PATIENT INSTRUCTED ON HIS HIGH BLOOD SUGARS AND NEED TO AVOID HIGH SUGAR FOODS TO WHICH PATIENT RESPONDS, "DOESN'T MATTER, I'M JUST GOING TO EAT IT WHEN I LEAVE HERE ANYWAYS." PATIENT GIVEN CRANBERRY JUICE, WATER, AND A POPSICLE PER HIS REQUEST.
--- NOTE | 2019-04-11 16:50 | NUR ---
PATIENT USES CALL LIGHT AND REQUESTS TO USE THE URINAL. PT IS MORE PLEASANT AT THIS TIME, BUT IS STILL WANTING TO GO TO SLEEP AND NOT BE BOTHERED OVERALL. PT PLACED BACK ON CPAP AT THIS TIME.
--- NOTE | 2019-04-11 16:52 | NUR ---
DISCUSSED WITH DR. ALBARADO THE ULTRASOUND FINDINGS. WARM PACKS TO BE PROVIDED FOR PATIENT'S WOUND AREA ON BACK. K-PAD/HEATING PAD APPLIED. NEW DRESSING APPLIED ON WOUND ON BACK.
--- NOTE | 2019-04-11 17:13 | NUR ---
PATIENT NOTED TO DESATURATE TO 70% WHILE ON CPAP, WITH 3 L BLED IN. RT CALLED AND NOW SWITCHING OUT CPAP MACHINES. PT STATES, "IT FEELS LIKE IT NEEDS TO BE RAMPED UP MORE, MINE AT HOME IS MORE POWERFUL." CONTINUE TO MONITOR.
[2019-04-11] MEDS ORDERED: CARVEDILOL ER40 MG PO (17:30)
[2019-04-11] MEDS ORDERED: FUROSEMIDE40 MG PO (17:30)
[2019-04-11] MEDS ORDERED: KLOR-CON20 MEQ PO (17:31)
[2019-04-11] MEDS ORDERED: VENTOLIN HFA18 GM INH (17:32)
[2019-04-11] MEDS ORDERED: AMLODIPINE BESYL5 MG PO (17:32)
--- NOTE | 2019-04-11 17:33 | NUR ---
MED REC COMPLETE
--- NOTE | 2019-04-11 19:30 | NUR ---
REPORT RECEIVED. PATIENT IN RECLINER. REQUEST ASSIST TO USE URNAL, WHICH KHADIJAH JENSEN HELPED HIM WITH. PATIENT THEN MOVED TO THE BED.
--- NOTE | 2019-04-11 21:00 | NUR ---
EVENING ABX PROVIDED PER ORDER. PATIENT RESTING IN BED, WATCHING TV. REQUESTING SNACKS. PATIENT UNINTERESTED IN DISCUSSION ABOUT LOW CARB/ LOW SUGAR SNACKS. APPLE JUICE AND SF JELLO PROVIDED. PATIENT REPORTS PAIN WNL. DRESSING ON RIGHT LEG INTACT. LEG ELEVATED ON 2 PILLOWS. CMS INTACT. PATIENT AFEBRILE. PICC LINE RETURNED BLOOD EASILY. IV ABX INFUSING. PATIENT TOLERATING ROOM AIR WHILE AWAKE. ENCOURAGED PATIENT TO CALL WHEN READY FOR SLEEP AND BIPAP CAN BE SET UP. PATIENT AGREES.
--- NOTE | 2019-04-11 22:00 | NUR ---
PATIENT FELL ASLEEP WITHOUT BIPAP AND DESAT TO THE 70'S. PATIENT WOKEN AND AGREES TO PUT BIPAP ON. RT IN TO ASSIST. PATIENT UNCOMFORTABLE WITH MASK AND REQUEST TO LEAVE OFF WHILE HE SNACKS. BIPAP OFF AGAIN AT THIS TIME.
--- NOTE | 2019-04-11 22:30 | NUR ---
PATIENT DESATING TO 70'S ON ROOM AIR WHILE SLEEPING. BIPAP MASK PLACED WITHOUT PATIENT WAKING.
--- NOTE | 2019-04-11 22:50 | NUR ---
PATIENT REMOVED BIPAP AND CONTINUED TO SLEEP. WOKE PATIENT TO PLACE BIPAP WHICH HE DENIED AT THIS TIME. REQUESTING MORE SNACKS. 3L NC PLACED.
--- NOTE | 2019-04-11 23:15 | NUR ---
PATIENT REQUESTING NEB TREATMENT. DENIES FEELING SOB BUT STATES "THIS COUGH IS MAKING ME FEEL LIKE I CAN'T BREATH VERY EASILY". RT CALLED.
--- NOTE | 2019-04-11 23:44 | NUR ---
PATIENT BACK ON BIPAP PER RT
--- NOTE | 2019-04-12 00:15 | NUR ---
PATIENT COMPLAINS OF DISCOMFORT FROM BIPAP MASK. KHADIJAH JENSEN ENCOURAGED PATIENT TO DRINK SOME WATER AND CONTINUE TO WEAR BIPAP. PATIENT AGREEABLE AND BACK ON BIPAP.
--- NOTE | 2019-04-12 01:27 | NUR ---
PATIENT COMPLAINS OF DISCOMFORT FROM BIPAP MASK. KHADIJAH JENSEN ENCOURAGED PATIENT TO DRINK SOME WATER AND CONTINUE TO WEAR BIPAP. PATIENT AGREEABLE AND BACK ON BIPAP.
--- NOTE | 2019-04-12 01:34 | NUR ---
PATIENT REMOVED BIPAP. STATES "IT TOO MUCH TO GET USED TO, I NEED A BREAK. I CAN'T KEEP DOING THIS AND IT'S NOT WORKING". VALIDATED PATIENT'S CONCERNS WITH DIFFICULTY WEARING THE BIPAP AND ENCOURAGED HIM TO TAKE A BREAK AND TRY AGAIN WHEN HE WAS READY. 3L NC IN PLACE. FRESH ICE WATER AND JUICE PROVIDED.
--- NOTE | 2019-04-12 02:30 | NUR ---
PATIENT PLACED HIMSELF ON THE BIPAP. APPEARS TO BE PROPERLY APPLIED. PATIENT ATTEMPTING TO SLEEP. CALL LIGHT IN REACH.
--- NOTE | 2019-04-12 04:00 | NUR ---
ABX STARTED PER ORDERS. PATIENT SLEEPING SOUNDLY WITH BIPAP IN PLACE.
--- NOTE | 2019-04-12 06:18 | NUR ---
PATIENT SLEEPING WITH BIPAP IN PLACE. MORNING LABS DRAWN. PICC RETURNS BLOOD EASILY. FLUSHED WITH 20 ML NS AND IV ABX RESTARTED ORDERED.
--- NOTE | 2019-04-12 09:24 | NUR ---
PATIENT UP TO CHAIR FOR BREAKFAST. ASSESSMENT COMPLETE. PATIENT IS MORE ALERT AND ORIENTED AND DESCRIBES FEELING "OUT OF IT" WHEN HE CAME INTO THE HOSPITAL. PT STATES, "I WASN'T MYSELF, I DIDN'T REALIZE HOW SICK I WAS." PT EDUCATED ON SEPTIC PROCESS AND DISCUSSED HIS LEG WOUNDS MORE. PT STATES THAT HIS LEG HAS BEEN REDENNED FOR ABOUT A MONTH, BUT THE BLISTER WAS VERY NEW. PT ALSO ASKING HOW LONG HE WILL IN THE HOSPITAL.
--- NOTE | 2019-04-12 10:18 | NUR ---
DR. ALBARADO IN TO SEE PATIENT. TRANSFER ORDERS REC'D. PT FOUND TO BE HELPING HIMSELF BACK TO BED FROM CHAIR, DESPITE BEING ASKED TO CALL FIRST. PT MORE STEADY ON FEET THAN YESTERDAY BUT STILL STATES HE FEELS WEAK. PT ASKED TO AGAIN USE CALL LIGHT.
--- NOTE | 2019-04-12 10:42 | NUR ---
DRESSING CHANGED ON RIGHT LOWER LEG. WOUND PER DIEM NURSE, MEDIHONEY, ABD PADS, AND THEN KERLEX WERE APPLIED IN THAT ORDER. BLISTER ON TOP OF RIGHT LEG SMALLER THAN YESTERDAY, BUT STILL OOZZING CLEAR YELLOW DRAINAGE. PT INFORMED OF HIS TRANSFER TO THE MEDICAL FLOOR. IV CEFEPIME INFUSINGA T THIS TIME.
--- NOTE | 2019-04-12 13:55 | NUR ---
PATIENT REMAINS IN CCU AT THIS TIME A HOUSE CONVENIENCE ON TELE #1. PT RESTING AT THIS TIME.
--- NOTE | 2019-04-12 14:51 | NUR ---
REPORT GIVEN TO CAMILA SANTOS AND PATIENT TRANSFERRED IN HIS BED TO ROOM 108. ALL BELONGINGS TAKEN WITH PATIENT.
--- NOTE | 2019-04-12 15:00 | NUR ---
Spoke with Hemal. He is resting in bed. Attempted to discuss plan for discharge. He is unwilling to give any phone numbers. He also does not want not want to discuss where he is going on discharge. Pt. states he will call a friend when he is discharged.
--- NOTE | 2019-04-12 15:00 | NUR ---
PT ARRIVED TO MED\SURG VIA HOSPITAL BED. PT ALERT AND ORIENTED. DENIES PAIN OR OTHER CONCERN AT THIS TIME. PT REQUESTING SHOWER. PICC LINE TO RIGHT UPPER ARM, FLUSHES EASILY AND GOOD BLOOD RETURN, DRESSING CDI. DRESSING TO RIGHT LE CDI. REDNESS NOTED ABOVE TOP OF DRESSING, MARKINGS NOTED, REDNESS WITHIN BOUNDRIES OF MARKING. ALLEVYN DRESSING TO RIGHT MID BACK AND RIGHT RING FINGER. RIGHT LEG ELEVATED ON PILLLOWS. ASSESSMENT COMPLETED. CALL LIGHT WITHIN REACH.
--- NOTE | 2019-04-12 15:57 | NUR ---
RIGHT LEG DRESSING REMOVED. PT UP TO SHOWER WITH MINIMAL ASSIST.
--- NOTE | 2019-04-12 16:45 | NUR ---
PT BACK TO BED AFTER SHOWER. PT REPORTS THAT BLISTER TO RIGHT LE "BROKE OPEN" WHILE IN THE SHOWER. REDRESSED AT THIS TIME. MEDI-HONEY APPLIED TO OPEN SPOTS ON RLE, COVERED WITH ABD PADS AND KERLEX GAUZE. ELEVATED ON PILLOWS. ALLEVYN DRESSING TO RIGHT MID-BACK FELL OFF DURING SHOWER. MEDI-HONEY AND NEW ALLEVYN APPLIED. MEDI-HONEY AND ALLEVYN APPLIED TO WOUND ON RIGHT RING FINGER WELL. DURING DRESSIN CHANGES PT BECAME EMOTIONAL, TALKING ABOUT HIS PTSD AND CURRENT LIFE SITUATION. VERY TEARFUL. STATES HE WANTS TO GO TO [facility] AND HAVE COMMUNION, ETC. THIS RN PROVIDED THERAPEUTIC COMMUNICATION. NOTIFIED PT THAT [facility] WAS AVAILABLE ON TV AND THAT WE HAVE [facility]. NOTIFIED SPIRITUAL CARE BACK MAKER TO CONTACT [facility]. PT THANKFUL FOR INTERACTION. APPEARED IN [facility] AFTERWARDS. CALL LIGHT WITHIN REACH.
--- NOTE | 2019-04-12 17:20 | NUR ---
DEACON CASTELLANOS PRESENT TO PROVIDE BLESSING AND PRAYERS FOR PT. PT REPORTS THAT [facility] WILL BE IN TOMORROW MORNING TO VISIT WITH HIM MORE. PT'S DINNER ARRIVED AT THIS TIME. DENIES PAIN OR OTHER CONCERNS. CALL LIGHT WITHIN REACH.
--- NOTE | 2019-04-12 19:50 | NUR ---
PATIENT UP TO THE BATHROOM WITH IPSBA, AND THEN BACK TO BED NO C/O PAIN. CALL LIGHT IN REACH.
--- NOTE | 2019-04-12 21:00 | NUR ---
PATIENT BACK IN BED WATCHING TV. CALL LIGHT IN REACH. SNACKS GIVEN TO PATIENT BY ERP PM.
--- NOTE | 2019-04-12 23:12 | NUR ---
PATIENT'S INSULIN WAS DELAYED AND SUGAR RECHECKED AT 270 AND 6 UNITS WERE. NYSTOP POWDER WAS APPLIED TO PANNUS. NEW ICE WATER GIVEN. PICC LINE HEP LOCKED AFTER 20MLS NS FLUSH WITH GOOG BLOOD RETURN. CALL LIGHT IN REACH. RT GOING TO QUALITY ASSURANCE SUPERVISOR BODY PATIENT TO BIPAP PATIENT IS READY FOR BED. CALL LIGHT IN REACH.
--- NOTE | 2019-04-13 00:16 | NUR ---
PATIENT RESTING QUIETLY ON HIS LEFT SIDE ON HIS BIPAP WITH EQUAL AND REGULAR RESPIRATIONS. EYES CLOSED. CALL LIGHT IN REACH.
--- NOTE | 2019-04-13 01:26 | NUR ---
PATIENT RESTING QUIETLY STILL ON HIS LEFT SIDE. BIPAP STILL RUNNING RESPIRATIONS REGULAR AND EVEN AND EYES CLOSED. CALL LIGHT IN REACH.
--- NOTE | 2019-04-13 03:30 | NUR ---
PATIENT HAS BEEN RESTING QUIETLY ON HIS BIPAP EXCEPT FOR WHEN HE NEEDS TO URINATE. CALL LIGHT IN REACH.
--- NOTE | 2019-04-13 05:02 | NUR ---
PATIENT WAS ON ROOM AIR AT THE BEGINNING OF THE SHIFT, AND THEN SLEPT ON THE BIPAP UNTIL A SHORT TIME AGO, WHEN HE WOKE TO URINATE AND DECIDED
--- NOTE | 2019-04-13 06:44 | NUR ---
PATIENT'S RIGHT LOWER LEG DRESSING WAS FALLING OFF WITH A FAIR AMOUNT OF YELLOW DRAINAGE. NEW DRESSING PLACED. 4 ABDS, 2 KERLIX, AND MICROBORE TAPE.. PATIENT GOING TO TRY AND GET SOME MORE SLEEP.
--- NOTE | 2019-04-13 07:19 | NUR ---
report received pt sleeping soundly
--- NOTE | 2019-04-13 09:00 | NUR ---
Attempted to see pt, he states he wants to sleep.
--- NOTE | 2019-04-13 10:00 | NUR ---
PT UP TO TOILET LINENS CHANGED, RECLINING CHAIR OFFERED. PT RETURNS TO BED RESTING EYES CLOSED.
--- NOTE | 2019-04-13 12:31 | NUR ---
DEACON CASTELLANOS WAS CALLED IN TO SEE PT LAST NIGHT. HE CALLED ME THIS AM AND STATED THAT PT WOULD LIKE TO HAVE PUNCH OPERATOR VISIT. INFORMED FATHER ODETTE OF PTS' WISHES. HE WILL CHECK ON PT. WILL FOLLOW NEEDED
--- NOTE | 2019-04-13 13:59 | NUR ---
PT UP TO TOILET THEN TO RECLINER, CALL LIGHT IN HAND H20 AT CHAIR SIDE
--- NOTE | 2019-04-13 17:03 | NUR ---
PT RESTING IN BED AT THIS TIME C/O FREQUENT URNATION. URINAL AT BEDSIDE FRESH CHUX PROVIDED. PT DENIES PAIN OR DISCOMFORTS, STATES HE FEELS BETTER TODAY THAN YESTERDAY. CELLULITIS AFFECTED AREA APPEARS TO BE SHRINKING PT TOLERATING ABX WELL. FRESH H20 TO BEDSIDE PT DENIES FURTHER NEEDS
--- NOTE | 2019-04-13 19:59 | NUR ---
ROUNDED CHARGE. PATIENT IS RESTING IN BED. PATIENT DENIES ANY COMMENTS, QUESTIONS, OR CONCERNS. NO NEEDS NOTED. CALL LIGHT IN REACH.
--- NOTE | 2019-04-13 22:00 | NUR ---
PATIENT NOT C/O PAIN. EVENING MEDS GIVEN. PATIENT'S BLOOD SUGAR LOW ENOUGH HE NEEDED NO INSULIN. PICC LINE DRAWS AND FLUSHES. EVENING MEDS GIVEN. PATIENT VOIDED X2 WHILE I WAS IN THE SERGIO, PATIENT'S LOWER LEFT LEG DRESSING REDRESSED, BECAUSE IT WAS FALLING OFF. PATIENT HAD ME TURN OF THE LIGHTS AND ASKED NOT TO BE DISTURBED UNLESS NECESSARY AND DID NOT WANT HIS BIPAP ON AT THIS TIME. PATIENT ASKED ME TO CLOSE THE CURTAIN AND DOOR. CALL LIGHT IS IN REACH.
--- NOTE | 2019-04-13 22:52 | NUR ---
PATIENT RESTING QUIETLY ON HIS LEFT SIDE AT THIS TIME, RESPIRATIONS REGULAR AND EVEN. CALL LIGHT IN REACH. LIGHT OUT.
--- NOTE | 2019-04-14 00:49 | NUR ---
PATIENT CALLED AND WANTED URINALS EMPTIED, WATER GLASSES FILLED, AND PICC LINE FLUSHED WITH 20MLS NS AND THEN 5MLS OF HEPARIN. PATIENT HAD NO OTHER NEEDS AND IS HEP LOCKED NOW UNTIL 5AM. CALL LIGHT IN REACH AND LIGHTS OUT.
--- NOTE | 2019-04-14 02:31 | NUR ---
PATIENT CALLED AGAIN TO HAVE URINALS EMPTIED AND WATER GLASSES FILLED AND HE TOOK 650MG PO TYLENOL FOR GENERALIZED PAIN. PATIENT SAYS HE HAS ONLY SLEPT FOR ABOUT 20 MINUTES. ALSO GOT HIM A CUP OF ICE CHIPS AND 2 JELLO'S. CALL LIGHT IN REACH AND PATIENT AT THE SITTING IN BEDSIDE EATING JELLOW. NO OTHER NEEDS AT THIS TIME.
--- NOTE | 2019-04-14 04:45 | NUR ---
PATIENT HAS NOT SLEPT MUCH TONIGHT BECAUSE HE HAS HAD TO VOID A LOT. HE HAS ALSO BEEN VERY THIRSTY AND DRINKING A LOT OF WATER. PATIENT HAD SOME TYLENOL WHICH HELPED A BIT WITH HIS GENERALIZED DISCOMFORT. DRESSINGS ARE INTACT. I HAD TO REINFORCE THE RT LOWER LEG DRESSING. PATIENT RESTING QUIETLY AT THIS TIME FINALLY. CALL LIGHT IN REACH.
--- NOTE | 2019-04-14 05:24 | NUR ---
PATIENT JUST WALKED TO THE BATHROOM AND BACK AND HAD FOR SMALL HARD STOOLS. PATIENT HAS NO C/O PAIN AT THIS TIME AND IS GOING TO TRY AND REST SOME MORE HE DID GET ABOUT AN HOUR AND A HALF OF SLEEP AFTER THE TYLENOL. CALL LIGHT IN REACH.
--- NOTE | 2019-04-14 07:10 | NUR ---
Report received, orders acknowledged
--- NOTE | 2019-04-14 08:15 | NUR ---
Patient sitting up at edge of bed with feet placed on floor. Patient reports "tired, didn't sleep well." BS of 113, no insulin required. IV vanco finished infusing. No further needs at this time, call light within reach.
--- NOTE | 2019-04-14 09:39 | NUR ---
AMBULATORY TO BATHROOM TO URINATE. BREAKFAST PROVIDED WITH CBG OF 113. VERBALIZES DESIRE TO SHOWER TODAY AFTER A NAP.
--- NOTE | 2019-04-14 09:52 | NUR ---
PT SLEEPING AT THIS TIME. BREATHING UNLABORED. CALL LIGHT IN REACH. ENCOURAGED TO CALL WHEN AWAKE TO SHOWER AND FURTHER ASSESSMENT
--- NOTE | 2019-04-14 10:10 | NUR ---
RIGHT LOWER EXTREMITY ERTHEMATOUS TISSUE APPEARS TO BE SLIGHTLY DIMINISHED FROM MARKED LINE PRIOR. WARM TO TOUCH. DRESSING WITHIN TACT.WILL CONTINUE TO MONITOR. PT STATES BACK WOUND IS A "SPIDER BITE." DRESSING HAS MOISTURE AND BEGINNING TO PEAL OFF. WILL BE CHANGED WHEN AWAKENED. BREATHING UNLABORED AT THIS TIME AND APPEARS TO BE IN NO DISTRESS AT THIS TIME. CALL LIGHT WITHIN REACH.
--- NOTE | 2019-04-14 10:51 | NUR ---
Patient sleeping in bed, rouses to voice. Assessment complete. Voiding 1100 mls. Ice water refreshed. Patient reports pain of 5/10, prn pain medication given. Denies further needs at this time, call light within reach.
--- NOTE | 2019-04-14 11:00 | NUR ---
Patient able to ambulate to shower independently.
--- NOTE | 2019-04-14 11:30 | NUR ---
Dr. Brooks in room to discuss POC with patient. Orders acknowledged.
--- NOTE | 2019-04-14 11:45 | NUR ---
CURRENTLY IN SHOWER. WATER TO CLEANSE WOUNDS. PICC COVERED BUT PT STATES WATER CAME IN CONTACT WITH PICC DRESSING BEFORE IT WAS COVERED. BATHROOM CALLLIGHT WITHIN REACH.
--- NOTE | 2019-04-14 12:30 | NUR ---
Patient laying in bed, dressing change performed. Medihoney placed on wound on lower back, covered with an Allevyn. Medihoney put on lower right extremity, ABDs, and curlex placed.
--- NOTE | 2019-04-14 12:37 | NUR ---
RESTING IN BED WITH TELEVISION ON. BLOOD SUGAR OF 133 TAKEN BEFORE LUNCH. STATES "RUMBLING BELLY" PROVIDED WITH SUGAR FREE SODA WHICH "NORMALLY HELPS" DRESSING APPLIED TO RING FINGER WOUND WITH MEDIPORE HONEY. CALL LIGHT WITHIN REACH
--- NOTE | 2019-04-14 14:20 | NUR ---
BACK WOUND DRESSING CHANGED WITH SLIGHT YELLOW DRAINAGE. WOUND CLEANSED AND MEDICORE HONEY AND ADAPTACIL DRESSING APPLIED. RIGHT LOWER QUADRANT CELLITIS WOUND DRESSING CHANGED. MODERATE YELLOW DRAINAGE AT BLISTER SITES. MEDICORE HONEY AND ABD DRESSING APPLIED. KERLIX AND COBAN AROUND KERLIX. PICC DRESSING CHANGED BECAUSE IT WAS PEALING UP. SLIGHT DRIED BLOOD UNDER SITE. VANCOMYCIN DELAYED DUE TO DRESSING CHANGE.
--- NOTE | 2019-04-14 15:00 | NUR ---
Patient laying in bed watching tv. Assessment complete, dressings C/D/I. Patient denies pain. No further needs at this time. Call light within reach.
--- NOTE | 2019-04-14 15:40 | NUR ---
Pt resting in room, lights off. States not feeling well, co of painful.
--- NOTE | 2019-04-14 16:01 | NUR ---
RESTING IN BED WITH TELEVISION ON REQUESTING NO ADDITIONAL VISITORS TO SLEEP. MANUAL BLOOD PRESSURE TAKEN TO ASSESS AFTER ADDITIONAL NORVASC DOSAGE (SEE MAR). STATES HE WILL DECREASE HIS WATER CONSUMPTION PER DOCTOR'S ORDER. DINNER ORDERED.
--- NOTE | 2019-04-14 17:00 | NUR ---
BICEP MEASURED PROXIMAL TO PICC LINE SITE 38CM.
--- NOTE | 2019-04-14 17:45 | NUR ---
RESTING IN BED WATCHING TELEVISION. UP TO BEDSIDE TO USE URINAL OFTEN. FAMILY IN TO VISIT. VANCOMYCIN INFUSION COMPLETED. PICC LINE FLUSHED WITH NORMAL SALINE. CALL LIGHT WITHIN REACH
--- NOTE | 2019-04-14 18:30 | NUR ---
Patient sitting up at edge of bed with feet on floor. Blood pressure taken, 143/96. Dr. Brooks notified, orders acknowledged. Sprite provided, denies further needs at this time. Call light within reach.
--- NOTE | 2019-04-14 18:36 | NUR ---
THE SHIFT BEGAN WITH THE PATIENT SITTING IN BED RESTING WITH VANCOMYCIN INFUSING. RESPIRATORY AND CARDIAC SYSTEMS WNL. WOUNDS ON RLE, LOWER BACK, AND RIGHT RING FINGER EACH WITH DRESSING AND MEDIHONEY. CAPILLARY REFILL IN RLE DELAYED AROUND FOUR SECOND, 2+ EDEMA, AND ERTHYEMOUS AROUND WOUND. CONTINUALLY URINATING PALE, COPIOUS AMOUNTS THROUGHOUT THE SHIFT DOCTOR AWARE. ALONG WITH COPIOUS FLUIDS. SHOWERED WITH WATER OVER WOUNDS. FOLLOWED 75G CARBOHYDRATE DIET THROUGHOUT THE SHIFT. EACH WOUND DRESSING REDRESSED WITH MEDIHONEY. RLE WOUND WITH MODERATE, YELLOW DRAINAGE. PICC DRESSING CHANGED BECAUSE IT WAS PEALING UP. VITAL SIGNS STABLE. BLOOD PRESSURE ELEVATED TO 170/90S DESPITE ADDITIONAL 5MG OF NORVASC (SEE EMAR). DOCTOR NOTIFIED.
--- NOTE | 2019-04-14 19:24 | NUR ---
REPORTS NAUSEATED SUGAR FREE MARY JANE MIST GIVEN. REPORTS 710 PAIN APAP GIVEN. REPORT GIVEN TO CAMILA CANALES.
--- NOTE | 2019-04-14 19:36 | NUR ---
PATIENT RESTINE QUIETLY IN BED WATCHING TV. JUST GOT REPORT FROM DAY SHIFT AND DAYSHIFT JUST GAVE THE PATIENT TYLENOL FOR GENERALIZED PAIN. CALL LIGHT IN REACH.
--- NOTE | 2019-04-14 21:36 | NUR ---
PATIENT RESTING QUIETLY SUPINE, EYES CLOSED, RESPIRATIONS REGULAR AND EVEN, CALL LIGHT IN REACH.
--- NOTE | 2019-04-14 22:24 | NUR ---
PATIENT ALERT AND ORIENTED. PM MEDS HAVE BEEN PASSED. PATIENT'S WATER GLASSES HAVE BEEN FILLED . BLOOD SUGAR 108. PATIENT HAVING SOME APPLE JUICE AND 2 LOW CALORIE JELLOS SITTING AT BEDSIDE.
--- NOTE | 2019-04-15 00:50 | NUR ---
PATIENT COULD NOT DEAL WITH TRYING TO WEAR HIS BIPAP ANY MORE AND IS BACK ON 2L/NC AT 95% SATS. IV VANCO FINISHED AND PICC LINE NEYMAR AND FLUSHED FINE WITH 20MLS NS AND 5MLS HEPARIN FLUSH LOCK PLACED. PATIENT RESTING QUIETLY. CALL LIGHT IN REACH.
--- NOTE | 2019-04-15 03:03 | NUR ---
PATIENT HAS BEEN RESTING QUIETLY SUPINE ON 2L/NC WITH EYES CLOSED WHEN I WENT IN FOR AM ASSESSMENT. PATIENT HAVING NO PAIN OR NEEDS AND CALL LIGHT IS IN REACH.
--- NOTE | 2019-04-15 05:14 | NUR ---
PATIENT SLEPT MOST OF THE SECOND PART OF THE SHIFT AFTER HE GAVE UP ON TRYING TO USE THE BIPAP. STILL DRINKING A FAIR AMOUNT AND URINATING A FAIR AMOUNT. PATIENT REMAINED WITH SATS IN THE 90'S THE REST OF THE NIGHT ON 2L/NC. DRESSINGS ARE ALL STILL INTACT. PATIENT HAS NO CARE NEEDS AT THIS TIME AND NEEDED NO INSULIN LAST NIGHT. PICC LINE DRAWS AND FLUSHES GREAT AND VANCO CURRENTLY RUNNING. CALL LIGHT IN REACH.
--- NOTE | 2019-04-15 05:43 | NUR ---
PT CALLED BECAUSE IV PUMP WAS BEEPING. IT IS NOW INFUSING FINE AND HE IS RESTING WITH EYES CLOSED, RR IS EVEN AND NONLABORED. CALL LIGHT IS WITHIN REACH.
--- NOTE | 2019-04-15 07:15 | NUR ---
SHIFT REPORT RECEIEVED FROM [facility] REGISTERED NURSE RN
--- NOTE | 2019-04-15 07:15 | NUR ---
Report received, orders acknowledged.
--- NOTE | 2019-04-15 07:47 | NUR ---
PT SLEEPING BREATHING UNLABORED. AWAKENED BY VOICE. CBG CHECK OF 146
--- NOTE | 2019-04-15 08:20 | NUR ---
PATIENT RESTING IN BED. SETS UP BATHROOM FOR SHOWER. CALL LIGHT WITHIN REACH. NO OTHER NEEDS AT THIS TIME
--- NOTE | 2019-04-15 08:23 | NUR ---
RESTING IN BED WATCHING TELEVISION. VANCOMYCIN FINISHED INFUSING. PICC LINE SALINE LOCKED. CALL LIGHT WITHIN REACH. NO FURTHER NEEDS AT THIS TIME
--- NOTE | 2019-04-15 09:15 | NUR ---
Patient laying in bed watching tv. AM medications given. PICC line flushes and draws blood per protocol. Patient denies pain. Assessment complete. Dressings C/D/I. No further needs at this time, call light within reach.
--- NOTE | 2019-04-15 09:58 | NUR ---
PT STATES DESIRE TO SHOWER NOW BEFORE A DRESSING CHANGE. REQUESTS TO POSTPONE DRESSING CHANGE UNTIL THE AFTERNOON SO HE CAN REST. RESTING IN WITH TELEVISION ON. BREATHING UNLABORED. RING FINGER WOUND APPEARS TO BE DECREASING DRAINAGE AND ERYTHEMA. PT REMOVED DRESSING AND IS CURRENTLY OPEN TO AIR. RLE WOUND APPEARS TO BE LESS ERYTHEMATOUS STILL REMAINS WARM. WILL ASSESS FURTHER WITH DRESSING CHANGE. BACK WOUND HAS DECREASED ERYTHEMA PERIWOUND. DRESSING STARTING TO PEAL UP WILL NEED TO BE REDRESSED.
--- NOTE | 2019-04-15 10:13 | NUR ---
PT PRESSED CALL LIGHT TO REQUEST ADDITIONAL WATER AND ICECHIPS. STILL DECREASING WATER CONSUMPTION PER DOCTOR'S REQUEST. EMPTIED PALE COLORED URINE FROM THE URINAL AND HAT WITHIN TOILET. DENIES ANY OTHER CONCERNS AT THIS TIME. CALL LIGHT WITHIN REACH.
--- NOTE | 2019-04-15 11:30 | NUR ---
Patient laying in bed watching tv. Blood draw completed, tubes sent to lab. Patient denies further needs at this time, call light within reach.
--- NOTE | 2019-04-15 11:40 | NUR ---
In and spoke with Hemal. Noticed again he has all the lights out and is in a dark room. Denies offer to open curtains. Cont. to plan on dc to friends RV on discharge. States he will need at least an over night notice to contact his friend for a ride. He states he may then go to his daughters house, but does not state where she lives. Discussed Medicaid and let him know of transport and case management which are available through the [facility].
--- NOTE | 2019-04-15 11:51 | NUR ---
IN TO TAKE BLOOD SUGAR. PT STATES HE GOT A GOOD NAP IN. BLOOD SUGAR CHECKED 113MG/DL. PROVIDED PT WITH SUGAR FREE JELLO. CURRENTLY ORDERING LUNCH.
--- NOTE | 2019-04-15 12:30 | NUR ---
Patient ambulated to shower independently
--- NOTE | 2019-04-15 12:44 | NUR ---
BLOOD DRAWN FOR 1230 LABS FLUSHED AND NEYMAR WELL. LABS SENT. EATING LUNCH. ABOUT TO GET INTO SHOWER NOW. PICC COVERED. WATER TO RUN OVER WOUNDS
--- NOTE | 2019-04-15 13:44 | NUR ---
BACK AND RLE WOUND CLEANSED WITH WOUND CLEANSER. MEDIHONEY APPLIED TO EACH. ABD APPLIED AND KERLIX/COBAN WRAPPED. WOUND APPEARED TO HAVE LESS ERYTHEMA AND SWELLING COMPARED TO YESTERDAY. WARMTH HAS DECREASED. BACK WOUND DRESSED WITH MEDIHONEY AND ALLEVYN DRESSING. RIGHT RING FINGER DRESSED WITH MEDIHONEY AND ALLEVYN DRESSING. PATIENT RESTING IN BED WITH FAMILY IN THE ROOM. CALL LIGHT WITHIN REACH. REPORT GIVEN TO CAMILA BENEDICT
--- NOTE | 2019-04-15 13:52 | NUR ---
PATIENT SITTING UP ON THE EDGE OF THE BED. FAMILY IN ROOM. VITAL SIGNS AND I&O DONE. CALL LIGHT WITHIN REACH. NO OTHER NEEDS AT THIS TIME
--- NOTE | 2019-04-15 14:00 | NUR ---
Patient laying in bed watching tv. Ice chips provided. Dressings C/D/I. No further needs at this time, call light within reach.
--- NOTE | 2019-04-15 16:00 | NUR ---
Patient ambulated in hallways with nursing staff
--- NOTE | 2019-04-15 16:15 | NUR ---
Patient sitting up at the edge of the bed with feet on floor. Assessment complete. Patient denies pain or nausea. Ice chips refreshed. Dressing on LLE is C/D/I. No further needs at this time, call light within reach.
--- NOTE | 2019-04-15 16:32 | NUR ---
PATIENT AMBULATING IN THE HALLWAY WITH RN
--- NOTE | 2019-04-15 17:20 | NUR ---
PATIENT RESTING IN BED. VITAL SIGNS AND I&O DONE. SETS UP TABLE FOR DINNER. CALL LIGHT WITHIN REACH. NO OTHER NEEDS AT THIS TIME
--- NOTE | 2019-04-15 18:26 | NUR ---
Patient laying in bed watching tv. IV abx hung at 272 mls/hr. PICC line flushes and draws blood per protocol. Sprite provided on request. Patient agreeable to shave ugarte in order for bipap machine to seal better. Denies further needs at this time, call light within reach.
--- NOTE | 2019-04-15 20:00 | NUR ---
RECEIVED REPROT AT 1900, FOUND PT IN BED AWAKE WATCHING TV. PT HAD NO NEEDS AT THAT TIME.
--- NOTE | 2019-04-15 21:26 | NUR ---
V/S ARE WDL, ALL LOBES ARE CLEAR, DRESSINGS ON LEFT LOWER BACK AND RIGHT LOWER LEG DRESSINGS ARE C/D/I. PAIN AT THIS TIME IS 2/10. ABD SOUNDS ARE PRESENT. PT AND I DISSCUSSED TO REDUCE PO WATER INTAKE TONIGHT. PT AGREED. NO NEW OR OTHER CONCERNS NOTED AT THIS TIME. PT NOW IS HEP-LOCKED. PICC LINE IS WDL.
--- NOTE | 2019-04-15 23:56 | NUR ---
C-PAP KEEPS ALARMING. MAYBE A BAD SEAL DUE TO [place]. RT WAS CALLED AND SHE IS ON HER WAY. OTHERWISE PT IS SLEEPING.
--- NOTE | 2019-04-16 01:05 | NUR ---
PT REQUESTED MORE ICE WATER, PROVIDED JUST ONE CUP TO PT AND INFORMED PT TO TRY AND SLOW DOWN ON INTAKE PER RN INSTRUCTION, LET PT SITTING ON THE SIDE OF THE BED, BS TABLE AND CALL LIGHT IN REACH
--- NOTE | 2019-04-16 02:34 | NUR ---
PT IS AWAKE IN BED. DRESSINGS ARE C/D/I, NO NEW CONCERNS WERE NOTED. PT DENIES PAIN AT THIS TIME.
--- NOTE | 2019-04-16 04:36 | NUR ---
PT IS AWAKE IN BED. PT NEEDED SOME ICE CHIPS. NO NEW CONCERNS NOTED.
--- NOTE | 2019-04-16 06:17 | NUR ---
PT OVERALL HAD AN UNEVENTFUL NIGHT. PT AND I DID AGREE AT START OF SHIFT TO LOWER HIS PO WATER INTAKE. PT STILL HAS BEEN VERY THIRSTY ALL NIGHT. RIGHT LOWER LEG DRESSING IS C/D/I AND SO IS THE DRESSING ON HIS LOWER BACK. PT HAS +1 EDEMA IN BOTH ANKLES AND FEET. ALL LOBES ARE CLEAR, ABD SOUNDS ARE PRESENT. NO NEW CONCERNS NOTED THIS SHIFT SO FAR.
--- NOTE | 2019-04-16 07:30 | NUR ---
REPORT RECEIVED FROM CAMILA GUTIERREZ. 800ML IN URINAL, LIGHT YELLOW URINE. PT REQUESTS MORE TO DRINK. APPLE JUICE PROVIDED PER REQUEST. PT REPORTS 7 PAIN. SEE MAR FOR MEDICATIONS GIVEN. NO ADDITIONAL REQUESTS OR COMPLAINTS AT THIS TIME. CALL LIGHT WITHIN REACH.
--- NOTE | 2019-04-16 08:00 | NUR ---
PATIENT WS ASLEEP, PATIENT WASNT READY TO EAT BREAKFAST, NURSE AWARE
--- NOTE | 2019-04-16 09:09 | NUR ---
MORNING ASSESSMENT AND MEDICATIONS DUE. PT RESTING IN BED WITH EYES CLOSED. AWAKENS TO MOVEMENT IN ROOM. PT VOIDING FREQUENTLY, CLEAR/YELLOW URINE. ADDITIONAL APPLE JUICE PROVIDED PER REQUEST. DRESSINGS INTACT, PT DECLINES DRESSING CHANGE AT THIS TIME STATING "AFTER MY SHOWER WE CAN DO IT." PT STATES HE WILL SHOWER "IN A WHILE." MEDICATIONS GIVEN. PICC LINE ASSESSED, BRISK BLOOD RETURN NOTED. VANCO INFUSING AT THIS TIME. NO ADDITIONAL REQUESTS OR COMPLAINTS. CALL LIGHT WITHIN REACH.
--- NOTE | 2019-04-16 10:00 | NUR ---
PATIENT ATE BREAKFAST, PATIENT SAID HE WOULD TAKE A SHOWER LATER ON
--- NOTE | 2019-04-16 10:58 | NUR ---
THIS RN TO BEDSIDE TO CHECK ON PT. PT RESTING WITH EYES CLOSED, RESPIRATIONS EVEN AND UNLABORED. BED RAILS UP. CALL LIGHT WITHIN REACH.
--- NOTE | 2019-04-16 11:29 | NUR ---
PUMP ALARMING, ABX INFUSION COMPLETE. PICC LINE ASSESSED, BRISK BLOOD RETURN NOTED, LINE HEPARIN LOCKED PER PROTOCOL, ALCOHOL CAP APPLIED. NOON ASSESSMENT DONE. NO CHANGE. PT REPORTS 3/10 PAIN THAT "IS TOLERABLE" AT THIS TIME. SHOWER OFFERED, PT DECLINES AT THIS TIME STATING "MAYBE AFTER LUNCH AND THEN YOU CAN CHANGE THE DRESSINGS." POLYURIA CONTINUES WITH 1550ML SO FAR THIS SHIFT. NO ADDITIONAL REQUESTS OR COMPLAINTS. CALL LIGHT WITHIN REACH.
--- NOTE | 2019-04-16 12:00 | NUR ---
PATIENT ATE LUNCH PATEINT SAID HE WOULD TAKE SHOWER LATER ON
--- NOTE | 2019-04-16 13:22 | NUR ---
THIS RN TO ROOM TO CHECK ON PT. PT UP TO RESTROOM. PT PLANNING SHOWER AFTER HE FINISHES IN THE RESTROOM AND WITH SHAVING. WILL CHECK BACK.
--- NOTE | 2019-04-16 14:52 | NUR ---
THIS RN TO ROOM TO CHECK ON PT. PT RESTING WITH EYES CLOSED, RESPIRATIONS EVEN AND UNLABORED. PT ALLOWED TO REST. CALL LIGHT WITHIN REACH.
--- NOTE | 2019-04-16 16:02 | NUR ---
PATIENT TOK SHOWER, THIS CNA2 WASHED PATIENTS LEG WITH HIBBA CLEANSE AND WARM WATER, PATIENT PERFORMED HIS OWN SHOWER, NURSE WILL REDRESS WOUNDS
--- NOTE | 2019-04-16 16:29 | NUR ---
PT UP FOR SHOWER, SHOWERS INDEPENDANTLY. LEGS CLEANED WITH HIBACLENS SCRUP BY GOLD AND SILVER ASSAYER. PT FINSIHED WITH SHOWER AND BACK TO BED. WOUND REDRESSED BY THIS RN ACCORDING TO MD ORDER. ASSESSMENT DONE. LUGN SOUND CLEAR. WOUNDS LESS RED AND ANIMAL RESEARCHER APPEARANCE. PULSES STRONG. PT DENIES PAIN AND NAUSEA. DINNER ORDER PLACED. NO ADDITIONAL REQUESTS OR COMPLAINTS AT THIS TIME. CALL LIGHT WITHIN REACH.
--- NOTE | 2019-04-16 17:31 | NUR ---
PT HERE FOR COMPLICATED CELLULITIS. SHOWER THIS SHIFT. ALL DRESSINGS CHANGED AFTER SHOWER. PT CONTINUES TO VOID LARGE AMOUNTS THIS SHIFT. GOOD BLOOD RETURN FROM PICC LINE. IV ABX GIVEN X2 THIS SHIFT. MINIMAL PAIN AND NO NAUSEA. PT USES CALL LIGHT APPROPRIATLY.
--- NOTE | 2019-04-16 18:10 | NUR ---
MEDICATION DUE. PT REPORTS 11/08 PAIN, SEE MAR FOR MEDICATION GIVEN. PICC LINE ASSESSED, WNL, BRISK BLOOD RETURN NOTED. ABX STARTED. PT VISITING ON PHONE. NO ADDITIONAL REQUESTS OR COMPLAINTS AT THIS TIME. CALL LIGHT WITHIN REACH.
--- NOTE | 2019-04-16 20:00 | NUR ---
RECEIVED REPORT AT 1900, FOUND PT IN BED AWAKE WATCHING TV. PT HAD NO NEEDS OR CONCERNS AT THAT TIME.
--- NOTE | 2019-04-16 21:33 | NUR ---
V/S ARE WDL OVERALL WITH AN ELEVATED BP. ALL LOBES ARE CLEAR, ABD SOUNDS PRESENT. RIGHT FOOT/ ANKLE EDEMA IS BETTER AT ABOUT +1, LEFT LOWER LEG EDEMA IS RESOLVED. PAIN IS TOLERABLE AT THIS TIME STATED BY PT. NO NEW CONCERNS NOTED. ALL DRESSINGS ARE C/D/I.
--- NOTE | 2019-04-16 23:17 | NUR ---
PT AMBULATED HALLWAY FOR A FEW MINUTES. NO NEW CONCERNS NOTED AT THIS TIME.
--- NOTE | 2019-04-17 00:57 | NUR ---
PT AT THIS TIME IS SLEEPING. NO C-PAP ON .
--- NOTE | 2019-04-17 02:27 | NUR ---
PT IS AWAKE IN BED AND ASKED TO USE THE C-PAP NOW. RIGHT LOWER LEG IS UNCHANGED FROM PREVIOUS ASSESSMENT. LOWER BACK DRESSING HAS SOME SHADOWING PRESENGT. NO NEW CONCERNS NOTED AT THIS TIME.
--- NOTE | 2019-04-17 04:00 | NUR ---
PT IS SLEEPING AT THIS TIME WITH C-PAP ON.
--- NOTE | 2019-04-17 05:05 | NUR ---
BP AT START OF SHIFT WAS ELEVATED. PAIN HAS NOT REALLY BEEN AN ISSUE THIS SHIFT. DRESSINGS ARE C/I. THE LOWER BACK DRESSING HAS A SCANT AMOUNT OF SHADOWING PRESENT. EDEMA ON BOTH ANKLES/FEET HAS SUBSIDED, PEDIS PULSES +2, NO NEW REDNESS NOTED ON RIGHT LEG. PT DID WEAR THE C-PAP FOR A GOOD PORTION OF THIS SHIFT. PT ALSO AMBULATED THE HALLWAY X1 THIS SHIFT. NO NEW CONCERNS NOTED.
--- NOTE | 2019-04-17 07:05 | NUR ---
REPORT RECEIVED FROM CAMILA GUTIERREZ. PT RESTING IN BED, AWAKENS TO MOVEMENT IN ROOM. PT DENIES REQUESTS OR COMPLAINTS AT THIS TIME STATING HE WANTS TO "SLEEP MORE." PT ALLOWED TO REST. CALL LIGHT WITHIN REACH.
--- NOTE | 2019-04-17 07:49 | NUR ---
patient is in bed, patient asked for ice chips, and is currently waiting for breakfast, nothing else to report at this time
--- NOTE | 2019-04-17 09:29 | NUR ---
MORNING ASSESSMENT AND MEDICATION DUE. PT RESTING ON BACK WITH EYES CLOSED, RESPIRATIONS EVEN AND UNALBORED. PT AWAKENS TO VOICE. PT REPORTS 7 PAIN STATING "IT'S ABOUT NORMAL." SEE MAR FOR MEDICATION GIVEN. ASSESSMENT DONE. DRESSINGS C/D/I EXCEPT FOR SMALL AMOUNT OF SHADOWING ON BACK DRESSING. CMS INTACT. VITALS TAKEN. PT AFEBRIAL. MEDICATIONS GIVEN. PICC LINE ASSESSED, 10ML WASTE WITH 5ML LAB DRAW FOR VANCO TROUGH. PICC LINE SALINE LOCKED AT THIS TIME PENDING VANCO INFUSION. NICOTENE PATCH APPLIED. PT BACK TO RESTING WITH EYES CLOSED. SNORING NOTED. PT REFUESE CPAP. CALL LIGHT WITHIN REACH. BED RAILS UP.
--- NOTE | 2019-04-17 10:35 | NUR ---
AARON ARRIVED FROM [facility]. PT RESTING ON LEFT SIDE WITH EYES CLOSED. RESPIRATIONS EVEN AND UNLABORED, NO SNORING NOTED. PIV LINE ASSESSED, WNL, BRISK BLOOD RETURN NOTED. VANO STARTED, INFUSING VIA IV PUMP (SEE MAR). BED RAILS UP. CALL LIGHT WITHIN REACH.
--- NOTE | 2019-04-17 12:30 | NUR ---
PUMP ALARMING, VANCO INFUSION AND FLUSH COMPLETE. PICC LINE ASSESSED, WNL. BRISK BLOOD RETURN NOTED. PICC LINE HEPARIN LOCKED PER PROTOCOL, ALCOHOL CAP APPLIED. ASSESSMENT DONE. LUNG SOUNDS CLEAR. DRESSINGS INTACT. MD REQUESTS WOUNDS BE CLEANED WITH HIBACLEANS AGAIN THIS SHIFT. PT DECLINES SHOWER AND CLEANING AT THIS TIME. STATES HE WILL SHOWER AFTER LUNCH. MEDICATIONS GIVEN. NO ADDITIONAL REQUESTS OR COMPLAINTS AT THIS TIME. CALL LIGHT WITHIN REACH.
--- NOTE | 2019-04-17 14:49 | NUR ---
PATIENT WENT ON AN UNSUPERVISED WALK WITHOUT ETTING STAFF KNOW, HE IS BOW AWARE THAT HE NEEDS TO LET A STAFF MEMBER KNOW, HE AMBULATED ABOUT 4 LAPS TOLERATED IT WELL.
--- NOTE | 2019-04-17 14:56 | NUR ---
THIS RN TO ROOM TO CHECK ON PT. PT LISTENING TO MUSIC. PT REPORTS 2/10 PAIN AND DENIES NEED FOR MEDICATION AT THIS TIME. EDUCATION DONE WITH PT REGARDING LEAVING ROOM/UNIT WITHOUT NURSING STAFF. INSTRUMENT ASSEMBLER TO BEDSIDE TO ASSIST PT WITH SHOWER AND TO CLEAN LEG WITH HIBACLENSE SCRUB. LEGS SCRUBBED. PT UP FOR SHOWER. LINENS CHANGED. NO ADDITIONAL REQUESTS OR COMLAINTS AT THIS TIME. CALL LIGHT WITHIN REACH.
--- NOTE | 2019-04-17 16:33 | NUR ---
AFTERNOON ASSESSMENT DUE. PT RESTING IN BED WATCHING TV. PT REPORTS 4/10 GENERALIZED PAIN AND DENIES NEED FOR ADDITONAL PAIN MEDICATIONS AT THIS TIME. CMS INTACT. RLE DRESSING REMAINS C/D/I. DRESSING TO BACK SHOWS NO CHANGE, SMALL AMOUNT OF SHADOWING. LUNG SOUNDS CLEAR. PT ENCORUAGED TO AMBULATE. PT DECLINES. NO ADDITIONAL REQUESTS OR COMPLAINTS AT THIS TIME. CALL LIGHT WITHIN REACH.
--- NOTE | 2019-04-17 17:55 | NUR ---
MEDICATION DUE. PICC LINE ASSESSED, BRISK BLOOD RETURN NOTED. VANCO STARTED ORDERED (SEE MAR). PT RESTING IN BED. NO ADDITIONAL REQUESTS OR COMPLAINTS AT THIS TIME. CALL LIGHT WITHIN REACH.
--- NOTE | 2019-04-17 19:30 | NUR ---
REPORT RECEIVED FROM DAY SHIFT RN. PT LYING IN BED WATCHING TV, ALERT AND ORIENTED. NO QUESTIONS OR CONCERNS AT THIS TIME. CALL LIGHT IN REACH.
--- NOTE | 2019-04-17 20:30 | NUR ---
ASSESSMENT COMPLETE. EVENING MEDS GIVEN WITHOUT DIFFICULTY. IV ABX DONE, PICC LINE HEPARIN LOCKED. PICC DRESSING CDI. DRESSING ON RLE CDI. ALLEVYN ON BACK, WITH SMALL AMOUNT OF SHADOWING. DRESSING ON RING FINGER REINFORCED WITH TAPE. NO FURTHER NEEDS AT THIS TIME. CALL LIGHT IN REACH.
--- NOTE | 2019-04-18 00:13 | NUR ---
PT AWAKE AND RESTING IN BED, EYES OPEN, AND WATCHING TELEVISION. NO DISTRESS NOTED, CALL LIGHT IN REACH. DENIES NEEDS.
--- NOTE | 2019-04-18 01:45 | NUR ---
MEDICATED WITH PRN FOR C/O GENERALIZED PAIN. MILK AND FRESH WATER GIVEN. IV ABX INFUSING WITHOUT ISSUE. NO OTHER REQUESTS AT THIS TIME. CALL LIGHT IN REACH.
--- NOTE | 2019-04-18 04:30 | NUR ---
IV ABX COMPLETE. PT RESTING IN BED, CPAP IN PLACE. NAD. CALL LIGHT IN REACH.
--- NOTE | 2019-04-18 05:26 | NUR ---
PT ALERT AND ORIENTED, USES CALL LIGHT APPROPRIATELY. PT INDEPENDENT IN ROOM. IV ABX. PICC LINE, FLUSHES WELL WITH BRISK BLOOD RETURN. CPAP AT [facility]. RIGHT LEG DRESSING, CDI. ALLEVYN ON BACK, CDI. BLISTER ON RING FINGER COVERED WITH GAUZE AND TAPE. TYLENOL FOR PAIN. MRSA+.
--- NOTE | 2019-04-18 06:47 | NUR ---
I AND Os DONE AND CHARTED.
--- NOTE | 2019-04-18 06:51 | NUR ---
PT LYING IN BED, RESTING WITH EYES CLOSED. CPAP IN PLACE. RR EVEN AND UNLABORED. CALL LIGHT IN REACH.
--- NOTE | 2019-04-18 07:14 | NUR ---
REPORT RECEIVED FROM CAMILA SANTANA. PT RESTING ON LEFT SIDE. RESPIRATIONS EVEN AND UNLABORED. BED RAILS UP. CALL LIGHT WITHIN REACH.
--- NOTE | 2019-04-18 09:40 | NUR ---
MORNING ASSESSMENT AND MEDICATION DUE. PT EATING BREAKFAST. PT REPORTS 2/10 PAIN AND DENIES NEED FOR PAIN MEDICATION AT THIS TIME. RLE DRESSING C/D/I. DRESSING TO BACK SHOWS SMALL AMOUNT OF SHADOWING. FINGER DRESSING C/D/I. BOWEL TONES HEARD. LUNG SOUNDS CLEAR. PT DENIES ADDITIONAL REQUESTS OR COMPLAINTS AT THIS TIME. MEDICATIONS GIVEN. PT WATCHING TV. NO ADDITIONAL REQUESTS OR COMPLAINTS AT THIS TIME. SHOWER PLANNED FOR "AFTER THE VANCO." PICC LINE ASSESSED, WNL, SALINE LOCKED PENDING VANCO INFUSION. CALL LIGHT WITHIN REACH.
--- NOTE | 2019-04-18 10:43 | NUR ---
CASSIDYBlanca ARRIVED FROM PHARMACY. PICC LINE REASSESED, WNL, BRISK BLOOD RETURN NOTED. INFUSION STARTED (SEE JUL). PT RESTING IN BED. WATER AND ICE CHIPS PROVIDED. NO ADDITIONAL REQUESTS OR COMPLAINTS AT THIS TIME. CALL LIGHT WITHIN REACH.
--- NOTE | 2019-04-18 11:04 | NUR ---
Met with pt. May go home tomorrow. Pt is couch surfing and in need of housing will refer to [facility] for resources. Pt plans calling a friend for a ride and staying with them in their RV until he finds housing.
--- NOTE | 2019-04-18 11:55 | NUR ---
PT ALERT, ORIENTED AND RESTING, SEEMINGLY PATIENTLY.HAD GOOD VISIT WITH PT AND ADMITTED HE SHOULD HAVE HAD SURGERY YRS AGO. PT DECLINED PRAYER, GAVE BLESSING AND WILL FOLLOW NEEDED
--- NOTE | 2019-04-18 12:30 | NUR ---
NOON ASSESSMENT DUE. PUMP ALARMING, INFUSION AND FLUSH COMPLETE. PICC LINE ASSESSED, WNL. BRISK BLOOD RETURN NOTED. PICC LINE FLUSHED AND HEPARIN LOCKED PER PROTOCOL. ALCOHOL CAP APPLIED. PICC LINE COVERED FOR SHOWER. DRESSINGS REMOVED FROM ALL WOUNDS. WOUNDS CLEANSED WITH HIBACLEANS GENTALE SCRUB. GRANLUATION TISSUE NOTED UNDER SLOUGHING SKIN OF RLE WOUNDS. LEG MUCH LESS SWOLLEN. PT COMMENTS SAYING "OH, THAT LOOKS A LOT BETTER NOW." DRESSINGS TO FINGER AND BACK REMOVED, WOUNDS WNL. PT STATES HE DOES NOT WANT A DRESSING ON HIS FINGER ANY LONGER. PT UP TO SHOWER. DRESSINGS TO RLE AND BACK REAPPLIED PER MD ORDER. LINENS CHANGED. FRESH GOWN AND SOCKS IN PLACE. BM NOTED. PT REPORTS 2/10 PAIN WITH ALL CARES AND DENIES NEED FOR PAIN MEDICATION. PT RESTING IN BED TALKING ON PHONE. NO ADDTIIONAL REQUESTS OR COMPLAINTS AT THIS TIME. CALL LIGHT WITHIN REACH.
--- NOTE | 2019-04-18 13:47 | NUR ---
PICC LINE DRESSING CHANGE DUE. PT STATES HE DOES NOT WANT DRESSING CHANGE IF PICC LINE IS COMING OUT TOMORROW. MD CONSULTED. MD STATES OK TO DELAY DRESSING CHANGE PENDING PROBABLE DC TOMORROW. PT UPDATED. PT VERBALIZES UNDERSTANDING AND IS GREATFUL DECISION. PICC LINE DRESSING REMAINS C/D/I AT THIS TIME.
--- NOTE | 2019-04-18 14:54 | NUR ---
THIS RN TO BEDSIDE TO CHECK ON PT. PT WATCHING TV. NO REQUESTS OR COMPLAINTS. PT REPORST 2/10 PAIN AND DENIES NEED FOR PAIN MEDICATION. CALL LIGHT WITHIN REACH.
--- NOTE | 2019-04-18 16:15 | NUR ---
AFTERNOON ASSESSMENT DUE. PT RESTING IN BED. PT REPORTS 5/10 GENERALIZED PAIN "SORENESS." SEE MAR FOR MEDICATION GIVEN. ASSESSMENT DONE. ALL DRESSINGS C/D/I. PT DENIES NAUSEA. CMS INTACT. JELLO AND PUDDING PROVIDED PER PT REQUEST. NO ADDITIONAL REQUESTS OR COMPLAINTS AT THIS TIME. CALL LIGHT WITHIN REACH.
--- NOTE | 2019-04-18 16:55 | NUR ---
PT HERE FOR COMPLICATED CELLULITIS. ALL DRESSINGS CHANGED THIS SHIFT. SHOWER AND WOUND CLEANING THIS SHIFT. PT INDEPENDANT IN ROOM. PICC LINE FOR VANCO INFUSIONS. PRN TYLENOL GIVEN FOR PAIN. GOOD APPITITE. NO NAUSEA. PT VOIDING QUANTITY SUFFICIENT. EXPECTED DISCHARGE TOMORROW. CONTACT PRECAUTIONS FOR MRSA. PT USES CALL LIGHT APPROPRIATLY.
--- NOTE | 2019-04-18 17:55 | NUR ---
PATIENT RESTING IN BED, TALKING ON THE PHONE. CALL LIGHT IN REACH. NO OTHER NEEDS AT THIS TIME.
--- NOTE | 2019-04-18 18:48 | NUR ---
THIS RN TO ROOM TO CHECK ON PT. PT RESTING IN BED. THERAPUTIC COMMUNICATIO DONE WITH PT [facility]. PT EXPRESSES DESIRE TO "CHANGE THINGS." 20 MINUTE DISCUSSION HELD WITH PT. PT EXPRESSES GRATITUDE FOR CARE HE RECEIVED. PT REPORTS 2/10 PAIN AT THIS TIME AND DENIES NAUSEA. NO ADDITIONAL REQUESTS OR COMPLAINTS AT THIS TIME. CALL LIGHT WITHIN REACH.
--- NOTE | 2019-04-18 19:46 | NUR ---
REPORT RECEIVED FROM DAY SHIFT RN. PT LYING IN BED, ALERT AND ORIENTED. VANCO INFUSING. NO QUESTIONS OR CONCERNS AT THIS TIME. CALL LIGHT IN REACH.
--- NOTE | 2019-04-18 21:50 | NUR ---
ASSESSMENT COMPLETE. PM MEDS GIVEN WITHOUT ISSUE. PICC LINE FLUSHED, BRISK BLOOD RETURN. HEP LOCKED PER ORDER. SITE WNL. RLE DRESSING CDI, BACK DRESSING INTACT. SMALL AMOUNT OF SHADOWING NOTED. PT ALERT AND ORIENTED. NO FURTHER REQUESTS AT THIS TIME. CALL LIGHT IN REACH.
--- NOTE | 2019-04-18 23:10 | NUR ---
PT MEDICATED WITH PRN FOR 6/10 PAIN. PRN SLEEP AID GIVEN. PT LYING IN BED WATCHING TV, EVENING SNACK GIVEN. NO OTHER REQUESTS AT THIS TIME. CALL LIGHT IN REACH.
--- NOTE | 2019-04-19 02:20 | NUR ---
PT IN BED RESTING WITH EYES CLOSED. IV ABX INFUSING. PT REFUSES C-PAP SAYING "IT BOTHERS MY FACE". SPO2 93% ON RA. CALL LIGHT IN REACH.
--- NOTE | 2019-04-19 04:57 | NUR ---
PT WITH UNEVENTFUL NIGHT. PT INDEPENDENT IN ROOM. ALERT AND ORIENTED. RLE DRESSING, CDI. DRESSING ON BACK WITH SOME SHADOWING, INTACT. PICC LINE WITH BRISK BLOOD RETURN. TYLENOL FOR PAIN. RA. REFUSED C-PAP. VOIDING QS. EXPECTED DC THIS AM.
--- NOTE | 2019-04-19 06:22 | NUR ---
PT IN BED RESTING WITH EYES CLOSED, SNORING SOFTLY. SPO2 93% ON RA. RR EVEN AND UNLABORED. CALL LIGHT IN REACH.
--- NOTE | 2019-04-19 07:26 | NUR ---
REPORT RECIEVED FROM SADDLE MECHANIC RN. PT IN BED WITH EYES CLOSED. RESPIRATIONS EQUAL AND NONLABORED. CALL LIGHT IN REACH.
--- NOTE | 2019-04-19 09:40 | NUR ---
ASSESSMENT COMPLETED. ALLYVEN ON BACK WITH SOME SHADOWING. IS INTACT. DRESSING TO RLE C/D/I. PT DENIES PAIN. LUNGS CLEAR. DENIES NEEDS. CALL LIGHT IN REACH
--- NOTE | 2019-04-19 10:21 | NUR ---
PATIENT IN BED WATCHING TV. CALL LIGHT IN REACH. NO FURTHER NEEDS AT THIS TIME.
[2019-04-19] MEDS ORDERED: CARVEDILOL ER80 MG PO (10:56)
[2019-04-19] MEDS ORDERED: DOXYCYCLINE HY100 MG PO (10:57)
--- NOTE | 2019-04-19 13:58 | NUR ---
PT WAS SITTING IN CHAIR, WATCHING TV AND WAITING FOR PM P.T. AND DC. HE SEEMS TO BE DOING WELL, LOOKING FORWARD TO DC TODAY. EXTENDED A BLESSING, WILL ALSO FOLLOW NEEDED
--- NOTE | 2019-04-19 14:00 | NUR ---
MERARI REMOVED AND STERISTRIPS PLACED. PT TOLERATED WELL.
--- NOTE | 2019-04-19 16:07 | NUR ---
In and spoke with pt. He is calling a friend for a ride to [place]. Paperwork given for low in come housing and reminded to answer his phone as [facility] will be calling to help him. Understanding stated.
--- NOTE | 2019-04-19 17:07 | NUR ---
DISCHARGE INSTRUCTION PROVIDED. O2 PROVIDED FOR DRIVE HOME. PT CALLED FROM HOME STATING SHE DOES NOT HAVE A WALKER. TRANSFERED CALL TO [facility].
== END 2019-04-19 15:40 | disposition home or self-care (01) | DRG 872 ==
LOC: ED 15:49 → CCU 15:51 → MS 04-10 15:49 → CCU 04-10 15:49 → MS 04-12 14:30
PROVIDERS: ADMIT Internal Medicine
PROC: 5A09357 Assistance with Respiratory Ventilation, Less than 24 Consecutive Hours, Continuous Positive Airway Pressure (ICD-10-PCS; 2019-04-10)
PROC: 02HV33Z Insertion of Infusion Device into Superior Vena Cava, Percutaneous Approach (ICD-10-PCS; principal; 2019-04-11 11:30)
DX: A41.02 Sepsis due to Methicillin resistant Staphylococcus aureus (principal); L03.115 Cellulitis of right lower limb; L02.232 Carbuncle of back [any part, except buttock and flank]; R73.03 Prediabetes; I10 Essential (primary) hypertension; G47.33 Obstructive sleep apnea (adult) (pediatric); F17.200 Nicotine dependence, unspecified, uncomplicated; R82.6 Abnormal urine levels of substances chiefly nonmedicinal as to source; Z79.899 Other long term (current) drug therapy
CPT/HCPCS: 36415; 36569; 71045; 76705; 80048; 80053; 80202; 81001; 82565; 83036; 83605; 83735; 84132; 84520; 85007; 85025; 85032; 85651; 87040; 87070; 87077; 87088; 87186; 87205; 94640; 94660; 94667; 94760; 96361; 96365; 96366; 96367; 96368; 96372; 96374; 96375; 96376; 97602; 99284-25; 99406; C1751; C9113; G0378; J0692; J0696; J1450; J1650; J1815; J2060; J2930; J3370; J3480; J7030; J7040; J7060

== ENCOUNTER 2019-05-06 13:04 | Emergency (ER) | payer OTHER ==
[~2019-05-06] VITALS: Ht 182.9 cm; Wt 173.2 kg
[~2019-05-06 13:04] MED LIST: AMLODIPINE BESYL5 MG PO; BACTRIM DS TAB1 EACH PO; CARVEDILOL ER40 MG PO; CARVEDILOL ER80 MG PO; DOXYCYCLINE HY100 MG PO; FUROSEMIDE40 MG PO; KEFLEX500 MG PO; KLOR-CON20 MEQ PO; MICARDIS80 MG PO; VENTOLIN HFA18 GM INH
--- OUTSIDE RECORDS SUMMARY | 2019-05-06 13:06 | XMS ---
PreManage Notification: SANDRO STANLEY Security Clinical Resource Director Events No recent Security Events currently on file CRITERIA MET - [facility] - 2 Visits in 30 Days CARE PROVIDERS TAYLA EID Physician Ross Carrier Driver 04/20/2019-Current PHONE: [phone] Leidy has no Care Guidelines for this patient. EVanesa VISIT COUNT (12 MO.) [address] Janette Dawkins [address] [place], [place] [address] [facility] TOTAL 3 NOTE: Visits indicate total known visits. ED/UCC VISIT TRACKING (12 MO.) 05/06/2019 13:04 [facility] [place] TYPE: Emergency COMPLAINT: - WOUND CHECK, POSS INFECTION [facility] DIAGNOSES: - Wound Check - Cellulitis of right lower limb - Hallucinations 04/08/2019 15:50 [facility] [place] TYPE: Emergency COMPLAINT: - SPIDER BITE, FEVER [facility]21/2019 14:41 [facility] TYPE: Urgent Care DIAGNOSES: - Other problems related to employment - Work Related Injury - Post-traumatic stress disorder, unspecified INPATIENT VISIT TRACKING (12 MO.) 04/10/2019 15:49 [facility] [place] TYPE: Medical Surgical COMPLAINT: - COMPLICATED CELLULITIS/EARLY SEPSIS DIAGNOSES: - Sepsis due to Methicillin resistant Staphylococcus aureus Sepsis du - Cellulitis of right lower limb - Cellulitis of back [any part except buttock] - Essential (primary) hypertension - Carbuncle of back [any part, except buttock] - Prediabetes - Other senior living (current) drug therapy - Nicotine dependence, unspecified, uncomplicated - Obstructive sleep apnea (adult) (pediatric) - Abnormal urine levels of substances chiefly nonmed source [email or web address]
== END 2019-05-06 14:00 | disposition home or self-care (01) ==
LOC: ED 13:04
DX: Z00.8 Encounter for other general examination (principal)